=== PATIENT | female | born 1955 | race Caucasian/White ===

== ENCOUNTER 2020-01-17 18:07 | Inpatient (IN) ==
[2020-01-17 19:20] LABS: Basophils % 0.4 %; Hematocrit 50.6 % (35.3-44.9); Hemoglobin 13.4 g/dL (11.5-15.4); Immature Granulocytes % 1.8 % (0-4); Immature Platelets 9.2 % (1.1-6.1); Lymphocytes # 0.8 K/mcL (0.6-4.6); Lymphocytes % 11.4 %; Mean Corpuscular HGB Conc 26.5 g/dL (31.6-35.5); Mean Corpuscular Hemoglobin 23.7 pg (28.0-33.3); Mean Corpuscular Volume 89.6 fL (83.0-100.0); Monocytes # 0.5 K/mcL (0.0-1.3); Monocytes % 7.3 %; Neutrophils # 5.3 K/mcL (1.6-8.9); Nucleated Red Blood Cells 0.9 /100 WBC (0); Platelet Count 103 K/mcL (140-400); Red Blood Count 5.65 M/mcL (3.82-4.97); Red Cell Distribution Width 18.8 % (11.5-14.5); Segmented Neutrophils % 79.1 %; White Blood Count 6.7 K/mcL (4.3-11.1)
[2020-01-17 19:38] LABS: Alanine Aminotransferase 12 Units/L (7-52); Albumin 3.8 g/dL (3.5-5.7); Albumin/Globulin Ratio 1.1 (1.1-2.2); Alkaline Phosphatase 115 Units/L (34-104); Aspartate Amino Transferase 18 Units/L (13-39); BUN/Creatinine Ratio 18 (6-26); Bilirubin,Direct 0.3 mg/dL (0.0-0.2); Bilirubin,Indirect 0.4 mg/dL (0.0-1.0); Bilirubin,Total 0.7 mg/dL (0.3-1.0); Blood Urea Nitrogen 35 mg/dL (8-23); Calcium 8.8 mg/dL (8.6-10.3); Carbon Dioxide 29 mEq/L (23-29); Chloride 102 mEq/L (98-107); Ethanol < 10 mg/dL (Less than 10); Globulin 3.4 g/dL (2.4-3.5); Glucose 117 mg/dL (70-105); Osmolality,Calculated 299 (280-300); Potassium 5.5 mEq/L (3.5-5.1); Prothrombin Time 11.8 Seconds (9.4-12.1); Sodium 140 mEq/L (136-145); Total Protein 7.2 g/dL (6.4-8.9); eGFR For African Americans 31 (> 60); eGFR For Non-African Americans 25 (> 60)
[2020-01-17 19:41] LABS: Activated Partial Thrombo Time 30.7 Seconds (26.0-36.0)
[2020-01-17 19:49] LABS: Troponin I 0.04 ng/mL (< 0.04)
[2020-01-17 20:12] LABS: Platelet Estimate Decreased (Normal)
[2020-01-17 20:13] LABS: Bacteria,Urine Few per hpf (None-Few); Bilirubin,Urine Small (Negative); Blood,Urine Negative (Negative); Clarity,Urine Turbid (Clear); Color,Urine Yellow (Yellow); Glucose,Urine (UA) Normal (Normal); Hyaline Casts,Urine Many per lpf (None Seen); Ketones,Urine Trace mg/dL (Negative); Leukocyte Esterase,Urine Negative (Negative); Mucus,Urine Few per lpf (None-Few); Nitrite,Urine Negative (Negative); Protein,Urine 50 mg/dL (Neg-Trace); Specific Gravity,Urine 1.029 (1.010-1.025); Squamous Epithelial Cell,Urine Few per hpf (None-Few); Transitional Epi Cells,Urine Few per hpf (None-Few)
[2020-01-17 20:33] LABS: Amphetamine Screen,Urine Negative ng/mL (Cutoff=1000); Barbiturate Screen,Urine Negative ng/mL (Cutoff=200); Benzodiazepines Screen,Urine Negative ng/mL (Cutoff=200); Cannabinoid Screen,Urine Negative ng/mL (Cutoff = 50); Cocaine Screen,Urine Negative ng/mL (Cutoff= 300); Opiate Screen,Urine Positive ng/mL (Cutoff=300); Phencyclidine Screen,Urine Negative ng/mL (Cutoff=25)
[2020-01-17] MEDS ORDERED: *HR* LORazepam 2 MG/ML VIAL IVP ONE (21:42)
[2020-01-17 21:48] LABS: ABG Base Excess 1 mEq/L (-2 to 3); ABG HCO3 32 mEq/L (21-27); ABG Oxygen Saturation 91 % (95-98); ABG PCO2 80 mmHg (35-45); ABG PH 7.21 pH Units (7.32-7.45); ABG PO2 76 mmHg (85-104); ABG TCO2 35 mEq/L (20-26)
[2020-01-17 22:02] LABS: Adenovirus Not Detected (Not Detect); Bordetella Pertussis Not Detected (Not Detect); Chlamydophila pneumoniae Not Detected (Not Detect); Coronavirus 229E Not Detected (Not Detect); Coronavirus HKU1 Not Detected (Not Detect); Coronavirus NL63 Not Detected (Not Detect); Coronavirus OC43 Not Detected (Not Detect); Human Metapneumovirus Not Detected (Not Detect); Human Rhinovirus/Enterovirus Not Detected (Not Detect); Influenza A Subtype 2009 H1 Not Detected (Not Detect); Influenza B Not Detected (Not Detect); Mycoplasma pneumoniae Not Detected (Not Detect); Parainfluenza Virus 1 Not Detected (Not Detect); Parainfluenza Virus 2 Not Detected (Not Detect); Parainfluenza Virus 3 Not Detected (Not Detect); Parainfluenza Virus 4 Not Detected (Not Detect); Respiratory Syncytial Virus Not Detected (Not Detect)
[2020-01-17] MEDS ORDERED: *HR* Heparin 5,000 UNIT/ML VIAL IVP ONE (22:07)
[2020-01-17] MEDS ORDERED: *HR* Heparin 5,000 UNIT/ML VIAL IVP PRN ×2 (22:07)
[2020-01-17] MEDS ORDERED: Heparin 25,000UNIT/250ML 1/2NS 25,000 UNIT/250 ML IV.SOLN IVC SCH (22:15)
[2020-01-17 23:13] LABS: ABG Base Excess 2 mEq/L (-2 to 3); ABG HCO3 32 mEq/L (21-27); ABG Oxygen Saturation 68 % (95-98); ABG PCO2 76 mmHg (35-45); ABG PH 7.23 pH Units (7.32-7.45); ABG PO2 43 mmHg (85-104); ABG TCO2 35 mEq/L (20-26); Blood Gas Modality avaps; Blood Gas VT 550 cc
[2020-01-17 23:24] LABS: ABG Base Excess 3 mEq/L (-2 to 3); ABG HCO3 34 mEq/L (21-27); ABG Oxygen Saturation 96 % (95-98); ABG PCO2 80 mmHg (35-45); ABG PH 7.24 pH Units (7.32-7.45); ABG PO2 104 mmHg (85-104); ABG TCO2 36 mEq/L (20-26); Blood Gas Modality avaps; Blood Gas VT 550 cc
[2020-01-18 01:34] LABS: Potassium,Urine 58.7 mEq/L; Protein/Creatinine Ratio,Urine 0.33 mg/mg (0.00-0.20); Sodium, Urine 53.7 mEq/L
[2020-01-18] MEDS ORDERED: Naloxone 0.4 MG/ML INJ IVP PRN (01:36)
[2020-01-18 02:23] LABS: ABG Base Excess 2 mEq/L (-2 to 3); ABG HCO3 32 mEq/L (21-27); ABG Oxygen Saturation 92 % (95-98); ABG PCO2 72 mmHg (35-45); ABG PH 7.26 pH Units (7.32-7.45); ABG PO2 76 mmHg (85-104); ABG TCO2 34 mEq/L (20-26); Blood Gas VT 550 cc
[2020-01-18 03:27] LABS: Mean Corpuscular HGB Conc 27.5 g/dL (31.6-35.5)
[2020-01-18 03:28] LABS: Hematocrit 45.5 % (35.3-44.9); Hemoglobin 12.5 g/dL (11.5-15.4); Immature Platelets 8.7 % (1.1-6.1); Mean Corpuscular Hemoglobin 24.2 pg (28.0-33.3); Platelet Count 101 K/mcL (140-400); Red Blood Count 5.17 M/mcL (3.82-4.97); Red Cell Distribution Width 18.2 % (11.5-14.5); White Blood Count 8.4 K/mcL (4.3-11.1)
[2020-01-18 03:36] LABS: INR 1.2; Prothrombin Time 13.1 Seconds (9.4-12.1)
[2020-01-18 04:23] LABS: Calcium 8.3 mg/dL (8.6-10.3); Phosphorous 4.7 mg/dL (2.7-4.5); Potassium 5.8 mEq/L (3.5-5.1)
[2020-01-18 04:36] LABS: Troponin I 0.04 ng/mL (< 0.04)
[2020-01-18] MEDS ORDERED: Calcium Gluconate 1gm/50mL 1 GM/50 ML BAG IVPB ONE (04:36)
[2020-01-18] MEDS ORDERED: *HR* Dextrose 50 % in Water (Vial) 50 ML VIAL IVP ONE (04:38)
[2020-01-18] MEDS ORDERED: Perflutren Lipid Microsphere 1.3 ML in 0.9 % Sodium Chloride 8.7 ML IVP PRN (04:38)
[2020-01-18] MEDS ORDERED: Insulin Regular, Human 100 UNIT/ML IV ONE (04:38)
[2020-01-18 05:13] LABS: Basophils % 0.4 %; Eosinophils % 0.3 %; Immature Granulocytes % 0.8 % (0-4)
[2020-01-18] MEDS ORDERED: Furosemide 40 MG/4 ML VIAL IVP ONE (05:13)
[2020-01-18 05:14] LABS: Hematocrit 44.3 % (35.3-44.9); Hemoglobin 11.8 g/dL (11.5-15.4); Immature Platelets 9.9 % (1.1-6.1); Lymphocytes # 1.1 K/mcL (0.6-4.6); Lymphocytes % 14.5 %; Mean Corpuscular HGB Conc 26.6 g/dL (31.6-35.5); Mean Corpuscular Hemoglobin 23.2 pg (28.0-33.3); Mean Corpuscular Volume 87.2 fL (83.0-100.0); Mean Platelet Volume 11.1 fL (9.4-12.4); Monocytes # 0.8 K/mcL (0.0-1.3); Monocytes % 10.7 %; Neutrophils # 5.4 K/mcL (1.6-8.9); Nucleated Red Blood Cells 0.8 /100 WBC (0); Platelet Count 103 K/mcL (140-400); Red Blood Count 5.08 M/mcL (3.82-4.97); Red Cell Distribution Width 18.2 % (11.5-14.5); Segmented Neutrophils % 73.3 %; White Blood Count 7.4 K/mcL (4.3-11.1)
[2020-01-18] MEDS: Famotidine 20 MG/2 ML VIAL IVP SCH ×2 (05:36→17:15)
[2020-01-18] MEDS ORDERED: Insulin Human Regular 5 UNIT in 0.9 % Sodium Chloride 10 ML IV ONE (05:45)
[2020-01-18 06:51] LABS: Platelet Estimate Normal (Normal)
[2020-01-18 10:30] LABS: Calcium 8.5 mg/dL (8.6-10.3); Troponin I 0.03 ng/mL (< 0.04)
[2020-01-18 12:23] LABS: ABG Base Excess 4 mEq/L (-2 to 3); ABG HCO3 34 mEq/L (21-27); ABG Oxygen Saturation 96 % (95-98); ABG PCO2 76 mmHg (35-45); ABG PH 7.26 pH Units (7.32-7.45); ABG PO2 95 mmHg (85-104); ABG TCO2 36 mEq/L (20-26); Blood Gas Modality ST; Blood Gas VT 550 cc
[2020-01-18] MEDS: *HR* Heparin 5,000 UNIT/ML VIAL SQ SCH (21:29)
[2020-01-19] MEDS ORDERED: *HR* LORazepam 2 MG/ML VIAL IVP PRN (01:02)
[2020-01-19 04:37] LABS: Basophils % 0.3 %
[2020-01-19 04:39] LABS: ABG Base Excess 7 mEq/L (-2 to 3); ABG HCO3 36 mEq/L (21-27); ABG Oxygen Saturation 97 % (95-98); ABG PCO2 69 mmHg (35-45); ABG PH 7.32 pH Units (7.32-7.45); ABG PO2 97 mmHg (85-104); ABG TCO2 38 mEq/L (20-26); Blood Gas Modality AVAPS; Blood Gas VT 550 cc
[2020-01-19 04:39] LABS: Eosinophils # 0.1 K/mcL (0.0-0.6); Eosinophils % 1.3 %; Hematocrit 39.7 % (35.3-44.9); Hemoglobin 10.9 g/dL (11.5-15.4); Immature Granulocytes % 0.3 % (0-4); Immature Platelets 8.1 % (1.1-6.1); Lymphocytes # 0.6 K/mcL (0.6-4.6); Lymphocytes % 10.1 %; Mean Corpuscular HGB Conc 27.5 g/dL (31.6-35.5); Mean Corpuscular Hemoglobin 23.6 pg (28.0-33.3); Mean Corpuscular Volume 85.9 fL (83.0-100.0); Monocytes # 0.6 K/mcL (0.0-1.3); Nucleated Red Blood Cells 0.3 /100 WBC (0); Red Blood Count 4.62 M/mcL (3.82-4.97); Red Cell Distribution Width 18.2 % (11.5-14.5); White Blood Count 6.3 K/mcL (4.3-11.1)
[2020-01-19 05:02] LABS: BUN/Creatinine Ratio 29 (6-26); Blood Urea Nitrogen 26 mg/dL (8-23); Calcium 8.5 mg/dL (8.6-10.3); Carbon Dioxide 33 mEq/L (23-29); Chloride 103 mEq/L (98-107); Glucose 80 mg/dL (70-105); Osmolality,Calculated 296 (280-300); Phosphorous 2.1 mg/dL (2.7-4.5); Potassium 4.5 mEq/L (3.5-5.1); Sodium 141 mEq/L (136-145); eGFR For African Americans > 60 (> 60); eGFR For Non-African Americans > 60 (> 60)
[2020-01-19 05:28] LABS: Platelet Count 94 K/mcL (140-400)
[2020-01-19 05:29] LABS: Anisocytosis 1+ (Not Present); Hypochromasia Present (Not Present)
[2020-01-19 05:30] LABS: Platelet Estimate Slight Decrease (Normal)
[2020-01-19] MEDS: Famotidine 20 MG/2 ML VIAL IVP SCH (06:14)
[2020-01-19] MEDS: *HR* Heparin 5,000 UNIT/ML VIAL SQ SCH ×3 (06:14→21:00)
[2020-01-19 06:29] LABS: Troponin I 0.03 ng/mL (< 0.04)
[2020-01-19] MEDS: allopurinoL 300 MG TABLET PO SCH (07:59)
[2020-01-19] MEDS: Loratadine 10 MG TABLET PO SCH (07:59)
[2020-01-19] MEDS ORDERED: Furosemide 40 MG TABLET PO SCH (09:00)
[2020-01-19] MEDS: *HR* OxyCODONE/APAP 10/325 TABLET PO PRN ×3 (11:32→23:36)
[2020-01-19] MEDS: Pregabalin 75 MG CAPSULE PO SCH ×2 (16:23→19:48)
[2020-01-19] MEDS ORDERED: Furosemide 40 MG/4 ML VIAL IVP ONE (22:46)
[2020-01-20 05:16] LABS: Hematocrit 42.4 % (35.3-44.9); Mean Corpuscular Volume 84.3 fL (83.0-100.0); Red Blood Count 5.03 M/mcL (3.82-4.97)
[2020-01-20 05:18] LABS: Basophils % 0.6 %; Eosinophils # 0.1 K/mcL (0.0-0.6); Eosinophils % 2.7 %; Immature Granulocytes % 0.4 % (0-4); Immature Platelets 7.3 % (1.1-6.1); Lymphocytes # 0.8 K/mcL (0.6-4.6); Lymphocytes % 15.4 %; Mean Corpuscular HGB Conc 28.3 g/dL (31.6-35.5); Mean Corpuscular Hemoglobin 23.9 pg (28.0-33.3); Mean Platelet Volume 11.9 fL (9.4-12.4); Monocytes # 0.6 K/mcL (0.0-1.3); Monocytes % 11.9 %; Neutrophils # 3.5 K/mcL (1.6-8.9); Red Cell Distribution Width 18.1 % (11.5-14.5); White Blood Count 5.1 K/mcL (4.3-11.1)
[2020-01-20 05:22] LABS: Platelet Count 96 K/mcL (140-400)
[2020-01-20 05:36] LABS: BUN/Creatinine Ratio 22 (6-26); Blood Urea Nitrogen 17 mg/dL (8-23); Calcium 8.5 mg/dL (8.6-10.3); Carbon Dioxide 42 mEq/L (23-29); Chloride 96 mEq/L (98-107); Glucose 100 mg/dL (70-105); Osmolality,Calculated 294 (280-300); Potassium 3.9 mEq/L (3.5-5.1); Sodium 141 mEq/L (136-145); eGFR For African Americans > 60 (> 60); eGFR For Non-African Americans > 60 (> 60)
[2020-01-20] MEDS: *HR* OxyCODONE/APAP 10/325 TABLET PO PRN ×4 (05:41→23:36)
[2020-01-20] MEDS: *HR* Heparin 5,000 UNIT/ML VIAL SQ SCH ×3 (05:42→21:44)
[2020-01-20 08:14] LABS: Phosphorous 3.2 mg/dL (2.7-4.5)
[2020-01-20 08:21] LABS: ABG Base Excess 16 mEq/L (-2 to 3); ABG HCO3 47 mEq/L (21-27); ABG Oxygen Saturation 96 % (95-98); ABG PCO2 89 mmHg (35-45); ABG PH 7.33 pH Units (7.32-7.45); ABG PO2 93 mmHg (85-104); ABG TCO2 50 mEq/L (20-26)
[2020-01-20] MEDS: Pregabalin 75 MG CAPSULE PO SCH ×3 (08:49→20:24)
[2020-01-20] MEDS: Loratadine 10 MG TABLET PO SCH (08:49)
[2020-01-20] MEDS: allopurinoL 300 MG TABLET PO SCH (08:50)
[2020-01-20] MEDS ORDERED: hydroCHLOROthiazide 25 MG TABLET PO SCH (09:00)
[2020-01-20] MEDS ORDERED: Multivit/Ca/Min/Fe/FA 1 TAB TABLET PO SCH (09:00)
[2020-01-20] MEDS ORDERED: amLODIPine 5 MG TABLET PO SCH (11:15)
[2020-01-20] MEDS ORDERED: Naloxone 0.4 MG/ML INJ IVP PRN (16:36)
[2020-01-21] MEDS ORDERED: *HR* LORazepam 1 MG TABLET PO ONE (01:06)
[2020-01-21 05:18] LABS: Basophils % 0.3 %; Eosinophils % 3.4 %; Mean Corpuscular HGB Conc 28.1 g/dL (31.6-35.5)
[2020-01-21 05:20] LABS: Eosinophils # 0.2 K/mcL (0.0-0.6); Hematocrit 42.4 % (35.3-44.9); Hemoglobin 11.9 g/dL (11.5-15.4); Immature Granulocytes % 0.3 % (0-4); Immature Platelets 8.4 % (1.1-6.1); Lymphocytes # 0.8 K/mcL (0.6-4.6); Lymphocytes % 12.9 %; Mean Corpuscular Hemoglobin 23.6 pg (28.0-33.3); Mean Corpuscular Volume 84.1 fL (83.0-100.0); Monocytes # 0.8 K/mcL (0.0-1.3); Monocytes % 12.9 %; Neutrophils # 4.5 K/mcL (1.6-8.9); Platelet Count 94 K/mcL (140-400); Red Blood Count 5.04 M/mcL (3.82-4.97); Red Cell Distribution Width 18.5 % (11.5-14.5); Segmented Neutrophils % 70.2 %; White Blood Count 6.4 K/mcL (4.3-11.1)
[2020-01-21 05:36] LABS: BUN/Creatinine Ratio 22 (6-26); Blood Urea Nitrogen 14 mg/dL (8-23); Calcium 8.7 mg/dL (8.6-10.3); Carbon Dioxide 40 mEq/L (23-29); Chloride 95 mEq/L (98-107); Glucose 107 mg/dL (70-105); Magnesium 1.4 mg/dL (1.6-2.6); Osmolality,Calculated 289 (280-300); Phosphorous 2.8 mg/dL (2.7-4.5); Potassium 3.6 mEq/L (3.5-5.1); Sodium 139 mEq/L (136-145); eGFR For African Americans > 60 (> 60); eGFR For Non-African Americans > 60 (> 60)
[2020-01-21 05:41] LABS: Hypochromasia Present (Not Present); Platelet Estimate Decreased (Normal); Reactive Lymphocytes Present (Not Present)
[2020-01-21 05:42] LABS: Anisocytosis 1+ (Not Present)
[2020-01-21] MEDS: *HR* Heparin 5,000 UNIT/ML VIAL SQ SCH ×3 (06:09→20:17)
[2020-01-21] MEDS: *HR* OxyCODONE/APAP 10/325 TABLET PO PRN ×3 (06:10→20:16)
[2020-01-21] MEDS: allopurinoL 300 MG TABLET PO SCH (08:04)
[2020-01-21] MEDS: Pregabalin 75 MG CAPSULE PO SCH ×3 (08:04→20:17)
[2020-01-21] MEDS: Multivit/Ca/Min/Fe/FA 1 TAB TABLET PO SCH (08:04)
[2020-01-21] MEDS: lisinopriL 20 MG TABLET PO SCH (08:04)
[2020-01-21] MEDS: amLODIPine 5 MG TABLET PO SCH (08:05)
[2020-01-21] MEDS: Loratadine 10 MG TABLET PO SCH (08:05)
[2020-01-21] MEDS: hydroCHLOROthiazide 25 MG TABLET PO SCH (08:05)
[2020-01-21] MEDS: Furosemide 40 MG TABLET PO SCH (08:07)
[2020-01-21] MEDS ORDERED: lisinopriL 20 MG TABLET PO SCH (09:00)
[2020-01-22] MEDS: *HR* OxyCODONE/APAP 10/325 TABLET PO PRN ×3 (04:33→22:49)
[2020-01-22] MEDS: *HR* Heparin 5,000 UNIT/ML VIAL SQ SCH ×3 (04:34→20:44)
[2020-01-22 06:18] LABS: Basophils % 0.3 %; Monocytes % 12.5 %
[2020-01-22 06:20] LABS: Eosinophils # 0.2 K/mcL (0.0-0.6); Eosinophils % 2.6 %; Hematocrit 42.2 % (35.3-44.9); Immature Granulocytes % 0.3 % (0-4); Immature Platelets 8.4 % (1.1-6.1); Lymphocytes # 0.8 K/mcL (0.6-4.6); Lymphocytes % 10.4 %; Mean Corpuscular HGB Conc 28.4 g/dL (31.6-35.5); Mean Corpuscular Hemoglobin 24.2 pg (28.0-33.3); Mean Corpuscular Volume 85.1 fL (83.0-100.0); Neutrophils # 5.7 K/mcL (1.6-8.9); Red Blood Count 4.96 M/mcL (3.82-4.97); Red Cell Distribution Width 18.8 % (11.5-14.5); Segmented Neutrophils % 73.9 %; White Blood Count 7.7 K/mcL (4.3-11.1)
[2020-01-22 06:33] LABS: Platelet Count 98 K/mcL (140-400)
[2020-01-22 06:38] LABS: BUN/Creatinine Ratio 19 (6-26); Blood Urea Nitrogen 15 mg/dL (8-23); Calcium 8.9 mg/dL (8.6-10.3); Carbon Dioxide 38 mEq/L (23-29); Chloride 94 mEq/L (98-107); Glucose 119 mg/dL (70-105); Osmolality,Calculated 286 (280-300); Potassium 3.8 mEq/L (3.5-5.1); Sodium 137 mEq/L (136-145); eGFR For African Americans > 60 (> 60); eGFR For Non-African Americans > 60 (> 60)
[2020-01-22] MEDS: Multivit/Ca/Min/Fe/FA 1 TAB TABLET PO SCH (08:04)
[2020-01-22] MEDS: amLODIPine 5 MG TABLET PO SCH (08:05)
[2020-01-22] MEDS: Loratadine 10 MG TABLET PO SCH (08:05)
[2020-01-22] MEDS: hydroCHLOROthiazide 25 MG TABLET PO SCH (08:05)
[2020-01-22] MEDS: Furosemide 40 MG TABLET PO SCH (08:05)
[2020-01-22] MEDS: Pregabalin 75 MG CAPSULE PO SCH ×3 (08:05→20:44)
[2020-01-22] MEDS: allopurinoL 300 MG TABLET PO SCH (08:05)
[2020-01-22] MEDS: lisinopriL 20 MG TABLET PO SCH (08:06)
[2020-01-23] MEDS: *HR* Heparin 5,000 UNIT/ML VIAL SQ SCH ×3 (06:02→20:58)
[2020-01-23] MEDS: lisinopriL 20 MG TABLET PO SCH (07:58)
[2020-01-23] MEDS: hydroCHLOROthiazide 25 MG TABLET PO SCH (07:58)
[2020-01-23] MEDS: Furosemide 40 MG TABLET PO SCH (07:58)
[2020-01-23] MEDS: Pregabalin 75 MG CAPSULE PO SCH ×3 (07:59→20:57)
[2020-01-23] MEDS: Multivit/Ca/Min/Fe/FA 1 TAB TABLET PO SCH (07:59)
[2020-01-23] MEDS: Spironolactone 25 MG TABLET PO SCH (07:59)
[2020-01-23] MEDS: *HR* OxyCODONE/APAP 10/325 TABLET PO PRN ×3 (07:59→20:57)
[2020-01-23] MEDS: Propranolol LA (24 HR) 60 MG CAP.SA.24H PO SCH (07:59)
[2020-01-23] MEDS: amLODIPine 5 MG TABLET PO SCH (07:59)
[2020-01-23] MEDS: allopurinoL 300 MG TABLET PO SCH (07:59)
[2020-01-23] MEDS: Loratadine 10 MG TABLET PO SCH (07:59)
[2020-01-23] MEDS: predniSONE 20 MG TABLET PO SCH (11:30)
[2020-01-24] MEDS: *HR* OxyCODONE/APAP 10/325 TABLET PO PRN ×3 (03:32→16:21)
[2020-01-24 03:42] LABS: BUN/Creatinine Ratio 33 (6-26); Blood Urea Nitrogen 27 mg/dL (8-23); Carbon Dioxide 39 mEq/L (23-29); Chloride 88 mEq/L (98-107); Glucose 106 mg/dL (70-105); Osmolality,Calculated 278 (280-300); Potassium 3.8 mEq/L (3.5-5.1); Sodium 131 mEq/L (136-145); eGFR For African Americans > 60 (> 60); eGFR For Non-African Americans > 60 (> 60)
[2020-01-24] MEDS: *HR* Heparin 5,000 UNIT/ML VIAL SQ SCH ×2 (05:38→13:32)
[2020-01-24 08:27] LABS: Basophils % 0.3 %
[2020-01-24 08:28] LABS: Eosinophils # 0.1 K/mcL (0.0-0.6); Eosinophils % 1.3 %; Hematocrit 42.7 % (35.3-44.9); Hemoglobin 12.3 g/dL (11.5-15.4); Immature Granulocytes % 0.3 % (0-4); Immature Platelets 13.3 % (1.1-6.1); Lymphocytes # 1.1 K/mcL (0.6-4.6); Lymphocytes % 12.8 %; Mean Corpuscular HGB Conc 28.8 g/dL (31.6-35.5); Mean Corpuscular Hemoglobin 24.4 pg (28.0-33.3); Mean Corpuscular Volume 84.7 fL (83.0-100.0); Monocytes # 0.9 K/mcL (0.0-1.3); Neutrophils # 6.6 K/mcL (1.6-8.9); Platelet Count 117 K/mcL (140-400); Red Blood Count 5.04 M/mcL (3.82-4.97); Red Cell Distribution Width 19.1 % (11.5-14.5); Segmented Neutrophils % 75.3 %; White Blood Count 8.7 K/mcL (4.3-11.1)
[2020-01-24] MEDS: Multivit/Ca/Min/Fe/FA 1 TAB TABLET PO SCH (08:43)
[2020-01-24] MEDS: Pregabalin 75 MG CAPSULE PO SCH ×2 (08:43→13:32)
[2020-01-24] MEDS: Propranolol LA (24 HR) 60 MG CAP.SA.24H PO SCH (08:43)
[2020-01-24] MEDS: predniSONE 20 MG TABLET PO SCH (08:43)
[2020-01-24] MEDS: Loratadine 10 MG TABLET PO SCH (08:43)
[2020-01-24] MEDS: allopurinoL 300 MG TABLET PO SCH (08:43)
[2020-01-24] MEDS: amLODIPine 5 MG TABLET PO SCH (08:43)
[2020-01-24] MEDS: Spironolactone 25 MG TABLET PO SCH (08:44)
[2020-01-24] MEDS: lisinopriL 20 MG TABLET PO SCH (08:44)
[2020-01-24 08:56] LABS: Hypochromasia Present (Not Present); Platelet Estimate Decreased (Normal)
[2020-01-24 11:21] LABS: Amorphous Sediment,Urine Few per hpf (None-Few); Bacteria,Urine Few per hpf (None-Few); Bilirubin,Urine Negative (Negative); Blood,Urine Trace (Negative); Clarity,Urine Turbid (Clear); Color,Urine Yellow (Yellow); Glucose,Urine (UA) Normal (Normal); Ketones,Urine Negative (Negative); Leukocyte Esterase,Urine Large (Negative); Mucus,Urine Few per lpf (None-Few); Nitrite,Urine Negative (Negative); PH,Urine 6.5 pH Units (5.0-8.0); Protein,Urine Negative (Neg-Trace); Squamous Epithelial Cell,Urine Moderate per hpf (None-Few); Transitional Epi Cells,Urine Few per hpf (None-Few); WBC,Urine TNTC per hpf (0-3)
[2020-01-24] MEDS ORDERED: cefTRIAXone 2,000 MG in Water for inj. (sterile) 20 ML IVP ONE (12:06)
[2020-01-24 15:03] VITALS: BP 106/65
== END 2020-01-24 18:00 | disposition home health service (06) | DRG 291 ==
LOC: EMEROOARM 18:07 → ICNU 18:07 → SUATTDRO 01-18 01:37 → 2ANU 01-21 17:58
PROVIDERS: ADMIT Student in an Organized Health Care Education/Training Program; ATTEND Internal Medicine

== ENCOUNTER 2020-06-23 18:46 | Inpatient (IN) ==
[2020-06-23] MEDS ORDERED: Vancomycin 2,000 MG/520 ML IV.SOLN IVPB ONE (19:49)
[2020-06-23] MEDS ORDERED: Piperacillin/Tazobactam 3.375 GM in 0.9 % Sodium Chloride Mini Bag 100 ML IVPB ONE (19:49)
[2020-06-23 22:00] LABS: Hemoglobin 11.8 g/dL (11.5-15.4); Immature Granulocytes % 0.1 % (0-4)
[2020-06-23 22:02] LABS: Basophils # 0.1 K/mcL (0.0-0.2); Basophils % 0.9 %; Eosinophils # 0.3 K/mcL (0.0-0.6); Eosinophils % 3.3 %; Hematocrit 43.5 % (35.3-44.9); Immature Platelets 10.7 % (1.1-6.1); Mean Corpuscular HGB Conc 27.1 g/dL (31.6-35.5); Mean Corpuscular Hemoglobin 22.8 pg (28.0-33.3); Monocytes # 0.8 K/mcL (0.0-1.3); Monocytes % 9.7 %; Neutrophils # 6.1 K/mcL (1.6-8.9); Platelet Count 121 K/mcL (140-400); Red Blood Count 5.18 M/mcL (3.82-4.97); Red Cell Distribution Width 19.1 % (11.5-14.5); White Blood Count 8.2 K/mcL (4.3-11.1)
[2020-06-23 22:07] LABS: INR 1.1; Prothrombin Time 13.2 Seconds (9.4-12.1)
[2020-06-23 22:10] LABS: Activated Partial Thrombo Time 28.6 Seconds (26.0-36.0)
[2020-06-23 22:22] LABS: Hypochromasia Present (Not Present); Large Platelets Present (Not Present); Platelet Estimate Slight Decrease (Normal); Stomatocytes 2+ (Not Present)
[2020-06-23 22:30] LABS: BUN/Creatinine Ratio 22 (6-26); Blood Urea Nitrogen 21 mg/dL (8-23); Calcium 8.5 mg/dL (8.6-10.3); Carbon Dioxide 31 mEq/L (23-29); Chloride 101 mEq/L (98-107); Glucose 86 mg/dL (70-105); Lipase 18 Units/L (11-82); Osmolality,Calculated 286 (280-300); Sodium 137 mEq/L (136-145); Troponin I < 0.03 ng/mL (< 0.04); eGFR For African Americans > 60 (> 60); eGFR For Non-African Americans 58 (> 60)
[2020-06-23 22:51] LABS: Adenovirus Not Detected (Not Detect); Bordetella Pertussis Not Detected (Not Detect); Chlamydophila pneumoniae Not Detected (Not Detect); Coronavirus 229E Not Detected (Not Detect); Coronavirus HKU1 Not Detected (Not Detect); Coronavirus NL63 Not Detected (Not Detect); Coronavirus OC43 Not Detected (Not Detect); Human Metapneumovirus Not Detected (Not Detect); Human Rhinovirus/Enterovirus Not Detected (Not Detect); Influenza A Subtype 2009 H1 Not Detected (Not Detect); Influenza B Not Detected (Not Detect); Mycoplasma pneumoniae Not Detected (Not Detect); Parainfluenza Virus 1 Not Detected (Not Detect); Parainfluenza Virus 2 Not Detected (Not Detect); Parainfluenza Virus 3 Not Detected (Not Detect); Parainfluenza Virus 4 Not Detected (Not Detect); Respiratory Syncytial Virus Not Detected (Not Detect); SARS-CoV-2 Not Detected (Not Detect)
[2020-06-23] MEDS ORDERED: Furosemide 40 MG/4 ML VIAL IVP ONE (23:18)
[2020-06-23] MEDS ORDERED: Ondansetron 4 MG/2 ML VIAL IVP PRN (23:56)
[2020-06-23] MEDS ORDERED: Naloxone 0.4 MG/ML INJ IVP PRN (23:56)
[2020-06-23] MEDS ORDERED: Acetaminophen 325 MG TABLET PO PRN (23:56)
[2020-06-24 00:47] LABS: Basophils % 0.8 %; Mean Corpuscular Volume 83.7 fL (83.0-100.0)
[2020-06-24 00:49] LABS: Basophils # 0.1 K/mcL (0.0-0.2); Eosinophils # 0.3 K/mcL (0.0-0.6); Eosinophils % 3.6 %; Hematocrit 45.6 % (35.3-44.9); Hemoglobin 12.6 g/dL (11.5-15.4); Immature Granulocytes % 0.2 % (0-4); Lymphocytes # 1.1 K/mcL (0.6-4.6); Lymphocytes % 12.7 %; Mean Corpuscular HGB Conc 27.6 g/dL (31.6-35.5); Mean Corpuscular Hemoglobin 23.1 pg (28.0-33.3); Monocytes # 0.9 K/mcL (0.0-1.3); Monocytes % 10.1 %; Red Blood Count 5.45 M/mcL (3.82-4.97); Red Cell Distribution Width 19.7 % (11.5-14.5); Segmented Neutrophils % 72.6 %
[2020-06-24 00:50] LABS: INR 1.1; Prothrombin Time 12.9 Seconds (9.4-12.1)
[2020-06-24 00:53] LABS: Activated Partial Thrombo Time 28.5 Seconds (26.0-36.0)
[2020-06-24 01:07] LABS: Neutrophils # 6.5 K/mcL (1.6-8.9)
[2020-06-24 01:08] LABS: Alanine Aminotransferase 9 Units/L (7-52); Albumin 3.6 g/dL (3.5-5.7); Albumin/Globulin Ratio 1.1 (1.1-2.2); Alkaline Phosphatase 91 Units/L (34-104); Anisocytosis 1+ (Not Present); Aspartate Amino Transferase 11 Units/L (13-39); BUN/Creatinine Ratio 21 (6-26); Bilirubin,Total 0.5 mg/dL (0.3-1.0); Blood Urea Nitrogen 20 mg/dL (8-23); C-Reactive Protein 22 mg/L (Less than 10); Carbon Dioxide 32 mEq/L (23-29); Chloride 100 mEq/L (98-107); Chol/HDL Ratio 3.4 (0-4.9); Cholesterol 117 mg/dL (< 200); Globulin 3.2 g/dL (2.4-3.5); Glucose 113 mg/dL (70-105); HDL Cholesterol 34 mg/dL (40-59); LDL Cholesterol,Calculated 64 mg/dL (< 100); Magnesium 1.9 mg/dL (1.6-2.6); Osmolality,Calculated 289 (280-300); Platelet Clumps Few (Not Present); Poikilocytosis 1+ (Not Present); Polychromasia 1+ (Not Present); Potassium 5.1 mEq/L (3.5-5.1); Sodium 138 mEq/L (136-145); Stomatocytes 1+ (Not Present); Total Protein 6.8 g/dL (6.4-8.9); Triglycerides 93 mg/dL (< 150); eGFR For African Americans > 60 (> 60); eGFR For Non-African Americans 59 (> 60)
[2020-06-24] MEDS: *HR* OxyCODONE/APAP 10/325 TABLET PO PRN ×3 (04:15→21:06)
[2020-06-24] MEDS: Pregabalin 75 MG CAPSULE PO SCH ×3 (08:58→21:05)
[2020-06-24] MEDS: allopurinoL 300 MG TABLET PO SCH (08:58)
[2020-06-24] MEDS: Furosemide 40 MG/4 ML VIAL IVP SCH ×2 (08:58→17:15)
[2020-06-24] MEDS: Loratadine 10 MG TABLET PO SCH (08:58)
[2020-06-24] MEDS: cefTRIAXone 1,000 MG in Water for inj. (sterile) 10 ML IVP SCH (08:58)
[2020-06-24] MEDS: amLODIPine 5 MG TABLET PO SCH (08:58)
[2020-06-24] MEDS: Spironolactone 25 MG TABLET PO SCH (08:58)
[2020-06-24] MEDS: Propranolol LA (24 HR) 60 MG CAP.SA.24H PO SCH (09:47)
[2020-06-24] MEDS: *HR* Heparin 5,000 UNIT/ML VIAL SQ SCH ×2 (12:13→17:16)
[2020-06-25] MEDS: *HR* Heparin 5,000 UNIT/ML VIAL SQ SCH ×2 (05:31→17:20)
[2020-06-25] MEDS: Furosemide 40 MG/4 ML VIAL IVP SCH (07:34)
[2020-06-25] MEDS: *HR* OxyCODONE/APAP 10/325 TABLET PO PRN (07:35)
[2020-06-25 09:01] LABS: Eosinophils % 4.6 %; Hemoglobin 11.8 g/dL (11.5-15.4)
[2020-06-25 09:02] LABS: Basophils # 0.1 K/mcL (0.0-0.2); Basophils % 0.9 %; Eosinophils # 0.3 K/mcL (0.0-0.6); Hematocrit 42.6 % (35.3-44.9); Immature Granulocytes % 0.3 % (0-4); Immature Platelets 12.1 % (1.1-6.1); Lymphocytes # 0.8 K/mcL (0.6-4.6); Lymphocytes % 11.5 %; Mean Corpuscular HGB Conc 27.7 g/dL (31.6-35.5); Mean Corpuscular Hemoglobin 23.1 pg (28.0-33.3); Mean Corpuscular Volume 83.5 fL (83.0-100.0); Monocytes # 0.9 K/mcL (0.0-1.3); Monocytes % 14.1 %; Neutrophils # 4.5 K/mcL (1.6-8.9); Segmented Neutrophils % 68.6 %; White Blood Count 6.5 K/mcL (4.3-11.1)
[2020-06-25 09:18] LABS: BUN/Creatinine Ratio 22 (6-26); Blood Urea Nitrogen 23 mg/dL (8-23); Calcium 8.5 mg/dL (8.6-10.3); Carbon Dioxide 36 mEq/L (23-29); Chloride 97 mEq/L (98-107); Glucose 99 mg/dL (70-105); Osmolality,Calculated 292 (280-300); Potassium 5.1 mEq/L (3.5-5.1); Sodium 139 mEq/L (136-145); eGFR For African Americans > 60 (> 60); eGFR For Non-African Americans 54 (> 60)
[2020-06-25] MEDS: cefTRIAXone 1,000 MG in Water for inj. (sterile) 10 ML IVP SCH (10:24)
[2020-06-25] MEDS: Loratadine 10 MG TABLET PO SCH (10:27)
[2020-06-25] MEDS: Propranolol LA (24 HR) 60 MG CAP.SA.24H PO SCH (10:27)
[2020-06-25] MEDS: Spironolactone 25 MG TABLET PO SCH (10:27)
[2020-06-25] MEDS: amLODIPine 5 MG TABLET PO SCH (10:27)
[2020-06-25] MEDS: Pregabalin 75 MG CAPSULE PO SCH ×3 (10:27→20:15)
[2020-06-25] MEDS: allopurinoL 300 MG TABLET PO SCH (10:27)
[2020-06-25 11:40] LABS: Stomatocytes 3+ (Not Present)
[2020-06-25 11:41] LABS: Hypochromasia Present (Not Present); Poikilocytosis 2+ (Not Present)
[2020-06-26 03:13] LABS: Basophils % 0.8 %; Eosinophils # 0.2 K/mcL (0.0-0.6); Eosinophils % 4.7 %; Hematocrit 42.7 % (35.3-44.9); Hemoglobin 11.7 g/dL (11.5-15.4); Immature Granulocytes % 0.2 % (0-4); Lymphocytes % 20.3 %; Mean Corpuscular HGB Conc 27.4 g/dL (31.6-35.5); Mean Corpuscular Hemoglobin 23.5 pg (28.0-33.3); Mean Corpuscular Volume 85.7 fL (83.0-100.0); Monocytes # 0.9 K/mcL (0.0-1.3); Monocytes % 17.8 %; Red Blood Count 4.98 M/mcL (3.82-4.97); Red Cell Distribution Width 18.7 % (11.5-14.5); Segmented Neutrophils % 56.2 %; White Blood Count 4.9 K/mcL (4.3-11.1)
[2020-06-26 03:14] LABS: Neutrophils # 2.8 K/mcL (1.6-8.9); Platelet Count 62 K/mcL (140-400)
[2020-06-26 03:34] LABS: BUN/Creatinine Ratio 25 (6-26); Blood Urea Nitrogen 21 mg/dL (8-23); Calcium 8.5 mg/dL (8.6-10.3); Carbon Dioxide 37 mEq/L (23-29); Chloride 95 mEq/L (98-107); Glucose 96 mg/dL (70-105); Osmolality,Calculated 287 (280-300); Potassium 5.1 mEq/L (3.5-5.1); Sodium 137 mEq/L (136-145); eGFR For African Americans > 60 (> 60); eGFR For Non-African Americans > 60 (> 60)
[2020-06-26] MEDS: *HR* Heparin 5,000 UNIT/ML VIAL SQ SCH (05:36)
[2020-06-26] MEDS: Spironolactone 25 MG TABLET PO SCH (08:55)
[2020-06-26] MEDS: Propranolol LA (24 HR) 60 MG CAP.SA.24H PO SCH (08:55)
[2020-06-26] MEDS: Pregabalin 75 MG CAPSULE PO SCH ×3 (08:55→21:50)
[2020-06-26] MEDS: allopurinoL 300 MG TABLET PO SCH (08:55)
[2020-06-26] MEDS: Loratadine 10 MG TABLET PO SCH (08:55)
[2020-06-26] MEDS: amLODIPine 5 MG TABLET PO SCH (08:56)
[2020-06-26] MEDS: cefTRIAXone 1,000 MG in Water for inj. (sterile) 10 ML IVP SCH (08:56)
[2020-06-26] MEDS ORDERED: Furosemide 40 MG/4 ML VIAL IVP SCH (09:00)
[2020-06-26] MEDS: *HR* OxyCODONE/APAP 10/325 TABLET PO PRN ×2 (12:17→18:07)
[2020-06-27 05:01] LABS: BUN/Creatinine Ratio 23 (6-26); Blood Urea Nitrogen 18 mg/dL (8-23); Calcium 9.2 mg/dL (8.6-10.3); Carbon Dioxide 40 mEq/L (23-29); Chloride 91 mEq/L (98-107); Glucose 108 mg/dL (70-105); Osmolality,Calculated 284 (280-300); Potassium 4.4 mEq/L (3.5-5.1); Sodium 136 mEq/L (136-145); eGFR For African Americans > 60 (> 60); eGFR For Non-African Americans > 60 (> 60)
[2020-06-27] MEDS: cefTRIAXone 1,000 MG in Water for inj. (sterile) 10 ML IVP SCH (08:51)
[2020-06-27] MEDS: Spironolactone 25 MG TABLET PO SCH (08:52)
[2020-06-27] MEDS: Propranolol LA (24 HR) 60 MG CAP.SA.24H PO SCH (08:52)
[2020-06-27] MEDS: amLODIPine 5 MG TABLET PO SCH (08:52)
[2020-06-27] MEDS: Pregabalin 75 MG CAPSULE PO SCH ×3 (08:52→20:04)
[2020-06-27] MEDS: *HR* OxyCODONE/APAP 10/325 TABLET PO PRN ×3 (08:53→23:49)
[2020-06-27] MEDS: Loratadine 10 MG TABLET PO SCH (08:53)
[2020-06-27] MEDS: allopurinoL 300 MG TABLET PO SCH (08:53)
[2020-06-28 05:42] LABS: BUN/Creatinine Ratio 24 (6-26); Blood Urea Nitrogen 16 mg/dL (8-23); Carbon Dioxide 39 mEq/L (23-29); Chloride 92 mEq/L (98-107); Glucose 101 mg/dL (70-105); Osmolality,Calculated 279 (280-300); Potassium 4.5 mEq/L (3.5-5.1); Sodium 134 mEq/L (136-145); eGFR For African Americans > 60 (> 60); eGFR For Non-African Americans > 60 (> 60)
[2020-06-28] MEDS ORDERED: Furosemide 40 MG TABLET PO SCH (08:00)
[2020-06-28] MEDS: Spironolactone 25 MG TABLET PO SCH (08:00)
[2020-06-28] MEDS: Propranolol LA (24 HR) 60 MG CAP.SA.24H PO SCH (08:01)
[2020-06-28] MEDS: Pregabalin 75 MG CAPSULE PO SCH (08:01)
[2020-06-28] MEDS: cefTRIAXone 1,000 MG in Water for inj. (sterile) 10 ML IVP SCH (08:01)
[2020-06-28] MEDS: Loratadine 10 MG TABLET PO SCH (08:01)
[2020-06-28] MEDS: allopurinoL 300 MG TABLET PO SCH (08:01)
[2020-06-28] MEDS: amLODIPine 5 MG TABLET PO SCH (08:01)
[2020-06-28 08:06] VITALS: BP 115/72
[2020-06-28] MEDS: *HR* OxyCODONE/APAP 10/325 TABLET PO PRN ×2 (10:34→15:28)
== END 2020-06-28 15:15 | DRG 602 ==
LOC: EMEROOARM 18:46 → 3ANU 18:46 → SUATTDRO 23:37 → 3ANU 06-24 00:02
PROVIDERS: ADMIT Family Medicine; ATTEND Internal Medicine

== ENCOUNTER 2020-07-08 13:57 | Inpatient (IN) ==
[2020-07-08] MEDS ORDERED: 0.9 % Sodium Chloride 1,000 ML IVC ONE (14:44)
[2020-07-08 15:32] LABS: Immature Granulocytes % 0.5 % (0-4); Nucleated Red Blood Cells 0.5 /100 WBC (0)
[2020-07-08 15:33] LABS: Basophils % 0.7 %; Eosinophils % 0.7 %; Hematocrit 44.7 % (35.3-44.9); Hemoglobin 12.6 g/dL (11.5-15.4); Immature Platelets 7.1 % (1.1-6.1); Lymphocytes # 0.9 K/mcL (0.6-4.6); Lymphocytes % 20.9 %; Mean Corpuscular HGB Conc 28.2 g/dL (31.6-35.5); Monocytes # 0.5 K/mcL (0.0-1.3); Monocytes % 11.4 %; Neutrophils # 2.7 K/mcL (1.6-8.9); Platelet Count 155 K/mcL (140-400); Red Blood Count 5.26 M/mcL (3.82-4.97); Red Cell Distribution Width 20.9 % (11.5-14.5); Segmented Neutrophils % 65.8 %; White Blood Count 4.1 K/mcL (4.3-11.1)
[2020-07-08 15:54] LABS: Alanine Aminotransferase 19 Units/L (7-52); Albumin 3.4 g/dL (3.5-5.7); Albumin/Globulin Ratio 1.1 (1.1-2.2); Alkaline Phosphatase 90 Units/L (34-104); Aspartate Amino Transferase 28 Units/L (13-39); BUN/Creatinine Ratio 32 (6-26); Bilirubin,Total 0.4 mg/dL (0.3-1.0); Blood Urea Nitrogen 51 mg/dL (8-23); Calcium 8.7 mg/dL (8.6-10.3); Carbon Dioxide 30 mEq/L (23-29); Chloride 101 mEq/L (98-107); Glucose 91 mg/dL (70-105); Osmolality,Calculated 295 (280-300); Potassium 5.9 mEq/L (3.5-5.1); Sodium 136 mEq/L (136-145); Total Protein 6.4 g/dL (6.4-8.9); eGFR For African Americans 39 (> 60); eGFR For Non-African Americans 32 (> 60)
[2020-07-08] MEDS ORDERED: levoFLOXacin 750 MG/150 ML 750 MG/150 ML BAG IVPB ONE (15:54)
[2020-07-08 15:55] LABS: Troponin I < 0.03 ng/mL (< 0.04)
[2020-07-08 15:57] LABS: Microcytosis Present (Not Present); Polychromasia 1+ (Not Present)
[2020-07-08 15:58] LABS: Anisocytosis 2+ (Not Present)
[2020-07-08 16:08] LABS: Thyroid Stimulating Hormone 1.051 mcIU/mL (0.340-5.600)
[2020-07-08 16:42] LABS: Bilirubin,Urine Negative (Negative); Blood,Urine Negative (Negative); Clarity,Urine Clear (Clear); Color,Urine Yellow (Yellow); Glucose,Urine (UA) Normal (Normal); Ketones,Urine Negative (Negative); Leukocyte Esterase,Urine Negative (Negative); Nitrite,Urine Negative (Negative); PH,Urine 5.5 pH Units (5.0-8.0); Protein,Urine Trace mg/dL (Neg-Trace); Specific Gravity,Urine 1.024 (1.010-1.025); Urobilinogen,Urine Normal (Normal)
[2020-07-08 16:50] LABS: Activated Partial Thrombo Time 26.9 Seconds (26.0-36.0)
[2020-07-08 17:04] LABS: C-Reactive Protein 82 mg/L (Less than 10); Lactate Dehydrogenase 234 Units/L (140-271); Magnesium 1.9 mg/dL (1.6-2.6); Phosphorous 3.5 mg/dL (2.7-4.5)
[2020-07-08 17:06] LABS: Troponin I < 0.03 ng/mL (< 0.04)
[2020-07-08 17:25] LABS: Ferritin 31 ng/mL (10-120)
[2020-07-08 17:31] LABS: Adenovirus Not Detected (Not Detect); Coronavirus 229E Not Detected (Not Detect); Coronavirus HKU1 Not Detected (Not Detect); Coronavirus NL63 Not Detected (Not Detect); Coronavirus OC43 Not Detected (Not Detect)
[2020-07-08 17:33] LABS: Bordetella Pertussis Not Detected (Not Detect); Chlamydophila pneumoniae Not Detected (Not Detect); Human Metapneumovirus Not Detected (Not Detect); Human Rhinovirus/Enterovirus Not Detected (Not Detect); Influenza A Subtype 2009 H1 Not Detected (Not Detect); Influenza B Not Detected (Not Detect); Mycoplasma pneumoniae Not Detected (Not Detect); Parainfluenza Virus 1 Not Detected (Not Detect); Parainfluenza Virus 2 Not Detected (Not Detect); Parainfluenza Virus 3 Not Detected (Not Detect); Parainfluenza Virus 4 Not Detected (Not Detect); Respiratory Syncytial Virus Not Detected (Not Detect); SARS-CoV-2 DETECTED (Not Detect)
[2020-07-08] MEDS ORDERED: Ondansetron 4 MG/2 ML VIAL IVP PRN (19:37)
[2020-07-08] MEDS ORDERED: Naloxone 0.4 MG/ML INJ IVP PRN (19:37)
[2020-07-08] MEDS ORDERED: Isovue-370 500 ML BOTTLE IVP ONE (19:47)
[2020-07-08] MEDS ORDERED: Ringers Solution, Lactated 1,000 ML IVC SCH (20:00)
[2020-07-09] MEDS: *HR* OxyCODONE/APAP 10/325 TABLET PO PRN ×3 (00:51→22:54)
[2020-07-09] MEDS ORDERED: Insulin Human Regular 10 UNIT in 0.9 % Sodium Chloride 10 ML IV ONE (01:22)
[2020-07-09] MEDS ORDERED: *HR* Dextrose 50 % in Water (Vial) 50 ML VIAL IVP ONE (01:22)
[2020-07-09] MEDS ORDERED: D5% in Water 1,000 ML IVC PRN (01:23)
[2020-07-09] MEDS ORDERED: *HR* Dextrose 50 % in Water (Vial) 50 ML VIAL IVP PRN (01:23)
[2020-07-09] MEDS ORDERED: Dextrose Gel 15 GM/37.5 ML TUBE PO PRN ×2 (01:23)
[2020-07-09] MEDS ORDERED: SODIUM ZIRCONIUM CYCLOSILICATE 5 GM POWD.PACK PO ONE (01:24)
[2020-07-09] MEDS ORDERED: 0.9 % Sodium Chloride 1,000 ML IVC SCH (01:30)
[2020-07-09 06:43] LABS: Hematocrit 44.8 % (35.3-44.9); Hemoglobin 12.6 g/dL (11.5-15.4); Mean Corpuscular HGB Conc 28.1 g/dL (31.6-35.5)
[2020-07-09 06:46] LABS: Basophils % 0.4 %; Immature Granulocytes % 1.1 % (0-4); Immature Platelets 6.7 % (1.1-6.1); Lymphocytes # 0.5 K/mcL (0.6-4.6); Lymphocytes % 19.5 %; Mean Corpuscular Hemoglobin 23.7 pg (28.0-33.3); Mean Corpuscular Volume 84.2 fL (83.0-100.0); Monocytes # 0.1 K/mcL (0.0-1.3); Monocytes % 3.8 %; Platelet Count 153 K/mcL (140-400); Red Blood Count 5.32 M/mcL (3.82-4.97); Red Cell Distribution Width 20.8 % (11.5-14.5); Segmented Neutrophils % 75.2 %; White Blood Count 2.6 K/mcL (4.3-11.1)
[2020-07-09 06:47] LABS: INR 1.1; Prothrombin Time 12.2 Seconds (9.4-12.1)
[2020-07-09 07:04] LABS: Alanine Aminotransferase 15 Units/L (7-52); Albumin 3.2 g/dL (3.5-5.7); Albumin/Globulin Ratio 1.1 (1.1-2.2); Alkaline Phosphatase 83 Units/L (34-104); Aspartate Amino Transferase 19 Units/L (13-39); BUN/Creatinine Ratio 38 (6-26); Bilirubin,Total 0.3 mg/dL (0.3-1.0); Blood Urea Nitrogen 39 mg/dL (8-23); Calcium 8.6 mg/dL (8.6-10.3); Carbon Dioxide 28 mEq/L (23-29); Chloride 103 mEq/L (98-107); Chol/HDL Ratio 6.6 (0-4.9); Cholesterol 139 mg/dL (< 200); Globulin 2.9 g/dL (2.4-3.5); Glucose 216 mg/dL (70-105); HDL Cholesterol 21 mg/dL (40-59); LDL Cholesterol,Calculated 94 mg/dL (< 100); Lactate Dehydrogenase 213 Units/L (140-271); Magnesium 1.9 mg/dL (1.6-2.6); Osmolality,Calculated 300 (280-300); Potassium 5.8 mEq/L (3.5-5.1); Sodium 137 mEq/L (136-145); Total Protein 6.1 g/dL (6.4-8.9); Triglycerides 121 mg/dL (< 150); eGFR For African Americans > 60 (> 60); eGFR For Non-African Americans 54 (> 60)
[2020-07-09 07:14] LABS: Anisocytosis 1+ (Not Present); Hypochromasia Present (Not Present); Macrocytosis Present (Not Present); Microcytosis Present (Not Present); Platelet Estimate Slight Decrease (Normal)
[2020-07-09 07:19] LABS: Ferritin 26 ng/mL (10-120)
[2020-07-09] MEDS: Aspirin Enteric Coated 81 MG Tablet PO SCH (07:36)
[2020-07-09 08:37] LABS: C-Reactive Protein 50 mg/L (Less than 10)
[2020-07-09] MEDS ORDERED: Dexamethasone Sodium Phos/PF 10 MG/ML VIAL IVP SCH (09:00)
[2020-07-09] MEDS ORDERED: *HR* LORazepam 0.5 MG TABLET PO ONE (11:14)
[2020-07-09] MEDS: Insulin LISPRO 300 UNITS/3 ML VIAL SUBQ SCH ×5 (13:14→20:35)
[2020-07-09] MEDS: levoFLOXacin 750 MG/150 ML 750 MG/150 ML BAG IVPB SCH (17:59)
[2020-07-09] MEDS: Insulin DETEMIR 100 UNIT/ML X5UNITS SUBQ SCH (19:57)
[2020-07-10 02:12] LABS: BUN/Creatinine Ratio 36 (6-26); Blood Urea Nitrogen 28 mg/dL (8-23); Calcium 8.9 mg/dL (8.6-10.3); Carbon Dioxide 28 mEq/L (23-29); Chloride 103 mEq/L (98-107); Glucose 92 mg/dL (70-105); Osmolality,Calculated 289 (280-300); Potassium 4.8 mEq/L (3.5-5.1); Sodium 137 mEq/L (136-145); eGFR For African Americans > 60 (> 60); eGFR For Non-African Americans > 60 (> 60)
[2020-07-10] MEDS ORDERED: *HR* LORazepam 1 MG TABLET PO ONE (02:27)
[2020-07-10 02:28] LABS: Hematocrit 43.9 % (35.3-44.9); Hemoglobin 12.4 g/dL (11.5-15.4); Mean Corpuscular HGB Conc 28.2 g/dL (31.6-35.5); Mean Corpuscular Hemoglobin 23.8 pg (28.0-33.3); Mean Corpuscular Volume 84.3 fL (83.0-100.0); Red Blood Count 5.21 M/mcL (3.82-4.97); Red Cell Distribution Width 20.4 % (11.5-14.5); White Blood Count 4.7 K/mcL (4.3-11.1)
[2020-07-10] MEDS: Insulin LISPRO 300 UNITS/3 ML VIAL SUBQ SCH ×4 (07:52→19:31)
[2020-07-10] MEDS: Aspirin Enteric Coated 81 MG Tablet PO SCH (07:55)
[2020-07-10] MEDS: amLODIPine 5 MG TABLET PO SCH (07:58)
[2020-07-10] MEDS: allopurinoL 300 MG TABLET PO SCH (07:58)
[2020-07-10] MEDS: Pregabalin 75 MG CAPSULE PO SCH ×3 (07:58→19:28)
[2020-07-10] MEDS: Loratadine 10 MG TABLET PO SCH (08:00)
[2020-07-10] MEDS: Propranolol LA (24 HR) 60 MG CAP.SA.24H PO SCH (08:00)
[2020-07-10] MEDS: levoFLOXacin 750 MG/150 ML 750 MG/150 ML BAG IVPB SCH (08:01)
[2020-07-10] MEDS: Furosemide 40 MG TABLET PO SCH ×2 (08:01→15:21)
[2020-07-10 08:10] LABS: Estimated Average Glucose 117 mg/dl; Hemoglobin A1C 5.7 %
[2020-07-10 08:33] LABS: Protein/Creatinine Ratio,Urine 0.34 mg/mg (0.00-0.20); Sodium, Urine 63.6 mEq/L
[2020-07-10] MEDS ORDERED: *HR* LORazepam 2 MG/ML VIAL IVP PRN (08:36)
[2020-07-10] MEDS: *HR* OxyCODONE/APAP 10/325 TABLET PO PRN ×2 (09:49→17:54)
[2020-07-10] MEDS: *HR* Enoxaparin 40 MG/0.4 ML SYRINGE SQ SCH (17:13)
[2020-07-10] MEDS: polyethylene glycoL 3350 17 GM POWD.PACK PO SCH ×2 (17:14→18:10)
[2020-07-10] MEDS ORDERED: *HR* Heparin 5,000 UNIT/ML VIAL SQ SCH (18:00)
[2020-07-10] MEDS: Insulin DETEMIR 100 UNIT/ML X5UNITS SUBQ SCH (19:28)
[2020-07-11] MEDS: *HR* OxyCODONE/APAP 10/325 TABLET PO PRN ×2 (02:25→10:54)
[2020-07-11 03:19] LABS: BUN/Creatinine Ratio 28 (6-26); Blood Urea Nitrogen 26 mg/dL (8-23); Calcium 9.2 mg/dL (8.6-10.3); Carbon Dioxide 37 mEq/L (23-29); Chloride 99 mEq/L (98-107); Glucose 88 mg/dL (70-105); Osmolality,Calculated 292 (280-300); Potassium 4.4 mEq/L (3.5-5.1); Sodium 139 mEq/L (136-145); eGFR For African Americans > 60 (> 60); eGFR For Non-African Americans > 60 (> 60)
[2020-07-11 03:28] LABS: Hematocrit 42.5 % (35.3-44.9); Immature Platelets 7.1 % (1.1-6.1); Mean Corpuscular HGB Conc 28.2 g/dL (31.6-35.5); Mean Corpuscular Hemoglobin 23.2 pg (28.0-33.3); Mean Corpuscular Volume 82.2 fL (83.0-100.0); Platelet Count 155 K/mcL (140-400); Red Blood Count 5.17 M/mcL (3.82-4.97); Red Cell Distribution Width 20.3 % (11.5-14.5); White Blood Count 4.7 K/mcL (4.3-11.1)
[2020-07-11] MEDS: *HR* Enoxaparin 40 MG/0.4 ML SYRINGE SQ SCH ×2 (04:55→17:16)
[2020-07-11] MEDS: Insulin LISPRO 300 UNITS/3 ML VIAL SUBQ SCH ×4 (08:47→20:36)
[2020-07-11] MEDS: Aspirin Enteric Coated 81 MG Tablet PO SCH (08:53)
[2020-07-11] MEDS: Furosemide 40 MG TABLET PO SCH ×2 (08:53→17:16)
[2020-07-11] MEDS: allopurinoL 300 MG TABLET PO SCH (08:53)
[2020-07-11] MEDS: polyethylene glycoL 3350 17 GM POWD.PACK PO SCH (08:54)
[2020-07-11] MEDS: Loratadine 10 MG TABLET PO SCH (08:55)
[2020-07-11] MEDS: Propranolol LA (24 HR) 60 MG CAP.SA.24H PO SCH (08:55)
[2020-07-11] MEDS: levoFLOXacin 750 MG/150 ML 750 MG/150 ML BAG IVPB SCH (08:55)
[2020-07-11] MEDS: Pregabalin 75 MG CAPSULE PO SCH ×3 (08:56→20:39)
[2020-07-11] MEDS: amLODIPine 5 MG TABLET PO SCH (08:56)
[2020-07-11] MEDS ORDERED: Isovue-370 500 ML BOTTLE IVP ONE (09:25)
[2020-07-11] MEDS ORDERED: *HR* LORazepam 2 MG/ML VIAL IVP PRN (09:27)
[2020-07-12] MEDS: *HR* OxyCODONE/APAP 10/325 TABLET PO PRN ×3 (00:48→20:15)
[2020-07-12 02:18] LABS: Basophils % 0.6 %
[2020-07-12 02:21] LABS: Eosinophils # 0.1 K/mcL (0.0-0.6); Eosinophils % 2.6 %; Hematocrit 42.4 % (35.3-44.9); Hemoglobin 12.2 g/dL (11.5-15.4); Immature Granulocytes % 1.3 % (0-4); Lymphocytes % 17.9 %; Mean Corpuscular HGB Conc 28.8 g/dL (31.6-35.5); Mean Corpuscular Hemoglobin 23.2 pg (28.0-33.3); Mean Corpuscular Volume 80.6 fL (83.0-100.0); Monocytes # 0.7 K/mcL (0.0-1.3); Monocytes % 12.5 %; Neutrophils # 3.5 K/mcL (1.6-8.9); Red Blood Count 5.26 M/mcL (3.82-4.97); Red Cell Distribution Width 19.9 % (11.5-14.5); Segmented Neutrophils % 65.1 %; White Blood Count 5.4 K/mcL (4.3-11.1)
[2020-07-12 02:41] LABS: BUN/Creatinine Ratio 27 (6-26); Blood Urea Nitrogen 25 mg/dL (8-23); Calcium 8.5 mg/dL (8.6-10.3); Carbon Dioxide 35 mEq/L (23-29); Chloride 95 mEq/L (98-107); Glucose 90 mg/dL (70-105); Osmolality,Calculated 286 (280-300); Potassium 4.5 mEq/L (3.5-5.1); Sodium 136 mEq/L (136-145); eGFR For African Americans > 60 (> 60); eGFR For Non-African Americans > 60 (> 60)
[2020-07-12] MEDS: *HR* Enoxaparin 40 MG/0.4 ML SYRINGE SQ SCH ×2 (05:05→16:59)
[2020-07-12] MEDS ORDERED: levoFLOXacin 750 MG TABLET PO SCH (09:00)
[2020-07-12] MEDS: Pregabalin 75 MG CAPSULE PO SCH ×3 (09:08→19:52)
[2020-07-12] MEDS: Loratadine 10 MG TABLET PO SCH (09:08)
[2020-07-12] MEDS: Aspirin Enteric Coated 81 MG Tablet PO SCH (09:08)
[2020-07-12] MEDS: Propranolol LA (24 HR) 60 MG CAP.SA.24H PO SCH (09:08)
[2020-07-12] MEDS: allopurinoL 300 MG TABLET PO SCH (09:08)
[2020-07-12] MEDS: Furosemide 40 MG TABLET PO SCH ×2 (09:08→16:59)
[2020-07-12] MEDS: amLODIPine 5 MG TABLET PO SCH (09:09)
[2020-07-12] MEDS: Insulin LISPRO 300 UNITS/3 ML VIAL SUBQ SCH ×4 (09:10→19:48)
[2020-07-13 00:47] LABS: Immature Granulocytes % 0.5 % (0-4); Red Cell Distribution Width 19.9 % (11.5-14.5)
[2020-07-13 00:48] LABS: Basophils % 0.7 %; Eosinophils # 0.2 K/mcL (0.0-0.6); Eosinophils % 2.4 %; Hematocrit 42.5 % (35.3-44.9); Immature Platelets 8.8 % (1.1-6.1); Lymphocytes % 16.1 %; Mean Corpuscular HGB Conc 28.2 g/dL (31.6-35.5); Mean Corpuscular Hemoglobin 22.9 pg (28.0-33.3); Monocytes # 0.7 K/mcL (0.0-1.3); Monocytes % 10.6 %; Neutrophils # 4.3 K/mcL (1.6-8.9); Red Blood Count 5.25 M/mcL (3.82-4.97); Segmented Neutrophils % 69.7 %; White Blood Count 6.1 K/mcL (4.3-11.1)
[2020-07-13 01:06] LABS: BUN/Creatinine Ratio 28 (6-26); Blood Urea Nitrogen 28 mg/dL (8-23); Calcium 8.4 mg/dL (8.6-10.3); Carbon Dioxide 38 mEq/L (23-29); Chloride 94 mEq/L (98-107); Glucose 108 mg/dL (70-105); Osmolality,Calculated 288 (280-300); Potassium 3.9 mEq/L (3.5-5.1); Sodium 136 mEq/L (136-145); eGFR For African Americans > 60 (> 60); eGFR For Non-African Americans 55 (> 60)
[2020-07-13] MEDS: *HR* Enoxaparin 40 MG/0.4 ML SYRINGE SQ SCH ×2 (05:22→17:43)
[2020-07-13] MEDS: Insulin LISPRO 300 UNITS/3 ML VIAL SUBQ SCH ×3 (07:58→16:41)
[2020-07-13] MEDS: Propranolol LA (24 HR) 60 MG CAP.SA.24H PO SCH (09:22)
[2020-07-13] MEDS: Aspirin Enteric Coated 81 MG Tablet PO SCH (09:23)
[2020-07-13] MEDS: Furosemide 40 MG TABLET PO SCH ×2 (09:23→17:43)
[2020-07-13] MEDS: polyethylene glycoL 3350 17 GM POWD.PACK PO SCH (09:23)
[2020-07-13] MEDS: amLODIPine 5 MG TABLET PO SCH (09:23)
[2020-07-13] MEDS: allopurinoL 300 MG TABLET PO SCH (09:23)
[2020-07-13] MEDS: Loratadine 10 MG TABLET PO SCH (09:23)
[2020-07-13] MEDS: *HR* OxyCODONE/APAP 10/325 TABLET PO PRN (09:23)
[2020-07-13] MEDS: Pregabalin 75 MG CAPSULE PO SCH ×2 (09:24→14:27)
[2020-07-13 16:50] VITALS: BP 109/63
== END 2020-07-13 18:16 | DRG 177 ==
LOC: EMEROOARM 13:57 → 2NENU 13:57 → SUATTDRO 19:45 → 2NENU 20:23
PROVIDERS: ADMIT Family Medicine; ATTEND Family Medicine

== ENCOUNTER 2021-09-23 11:52 | Inpatient (IN) ==
[2021-09-23] MEDS ORDERED: 0.9 % Sodium Chloride 1,000 ML IVC ONE ×2 (11:57→15:05)
[2021-09-23] MEDS ORDERED: Morphine Sulfate 2 MG/ML SYRINGE IVP ONE (11:57)
[2021-09-23] MEDS ORDERED: Ondansetron 4 MG/2 ML VIAL IVP ONE (11:57)
[2021-09-23] MEDS ORDERED: Isovue-370 500 ML BOTTLE IVP ONE (11:58)
[2021-09-23 12:12] LABS: Eosinophils % 0.1 %
[2021-09-23 12:18] LABS: Basophils % 0.3 %; Mean Corpuscular Volume 89.9 fL (83.0-100.0)
[2021-09-23 12:20] LABS: Hematocrit 52.5 % (35.3-44.9); Hemoglobin 17.3 g/dL (11.5-15.4); Immature Granulocytes % 0.4 % (0-4); Lymphocytes # 0.8 K/mcL (0.6-4.6); Lymphocytes % 7.6 %; Mean Corpuscular Hemoglobin 29.6 pg (28.0-33.3); Monocytes # 0.6 K/mcL (0.0-1.3); Monocytes % 5.5 %; Neutrophils # 9.3 K/mcL (1.6-8.9); Red Blood Count 5.84 M/mcL (3.82-4.97); Red Cell Distribution Width 14.7 % (11.5-14.5); Segmented Neutrophils % 86.1 %; White Blood Count 10.8 K/mcL (4.3-11.1)
[2021-09-23] MEDS ORDERED: diazePAM 10 MG/2 ML SYRINGE IVP ONE (12:57)
[2021-09-23] MEDS ORDERED: diazePAM 10 MG/2 ML SYRINGE IVP STA (14:03)
[2021-09-23 14:13] LABS: Bacteria,Urine Many per hpf (None-Few); Bilirubin,Urine Negative (Negative); Blood,Urine Negative (Negative); Clarity,Urine Turbid (Clear); Color,Urine Yellow (Yellow); Glucose,Urine (UA) Normal (Normal); Ketones,Urine 20 mg/dL (Negative); Leukocyte Esterase,Urine Large (Negative); Mucus,Urine Few per lpf (None-Few); Nitrite,Urine Negative (Negative); PH,Urine 5.5 pH Units (5.0-8.0); Protein,Urine 200 mg/dL (Neg-Trace); Specific Gravity,Urine > 1.030 (1.010-1.025); Squamous Epithelial Cell,Urine Few per hpf (None-Few); WBC,Urine 30-50 per hpf (0-3)
[2021-09-23] MEDS ORDERED: cefTRIAXone 1,000 MG in 0.9 % Sodium Chloride 10 ML IVP ONE (14:30)
[2021-09-23 14:57] LABS: Alanine Aminotransferase 14 Units/L (7-52); Albumin 3.9 g/dL (3.5-5.7); Albumin/Globulin Ratio 1.1 (1.1-2.2); Alkaline Phosphatase 113 Units/L (34-104); Amylase 369 Units/L (29-103); Aspartate Amino Transferase 34 Units/L (13-39); BUN/Creatinine Ratio 34 (6-26); Bilirubin,Direct 0.2 mg/dL (0.0-0.2); Bilirubin,Indirect 0.9 mg/dL (0.0-1.0); Bilirubin,Total 1.1 mg/dL (0.3-1.0); Blood Urea Nitrogen 26 mg/dL (8-23); Carbon Dioxide 23 mEq/L (23-29); Chloride 100 mEq/L (98-107); Globulin 3.5 g/dL (2.4-3.5); Glucose 140 mg/dL (70-105); Lipase 1072 Units/L (11-82); Osmolality,Calculated 291 (280-300); Potassium 4.8 mEq/L (3.5-5.1); Sodium 137 mEq/L (136-145); Total Protein 7.4 g/dL (6.4-8.9); Troponin I 0.03 ng/mL (< 0.04); eGFR For African Americans > 60 (> 60); eGFR For Non-African Americans > 60 (> 60)
[2021-09-23] MEDS ORDERED: *HR* HYDROmorphone (PF) 1 MG/ML SYRINGE IVP STA (15:05)
[2021-09-23] MEDS ORDERED: Ketorolac 30 MG/ML VIAL IVP STA (15:05)
[2021-09-23] MEDS ORDERED: Naloxone 0.4 MG/ML INJ IVP PRN (16:05)
[2021-09-23] MEDS ORDERED: Ondansetron 4 MG/2 ML VIAL IVP PRN ×2 (16:05→21:59)
[2021-09-23] MEDS ORDERED: Ketorolac 30 MG/ML VIAL IM PRN (16:05)
[2021-09-23] MEDS: 0.9 % Sodium Chloride 1,000 ML IVC SCH (18:41)
[2021-09-23] MEDS ORDERED: Lidocaine -MPF 2% 2 ML VIAL ONE (18:46)
[2021-09-23] MEDS ORDERED: *HR* Rocuronium Bromide 50 MG/5 ML VIAL ONE ×2 (18:46→21:59)
[2021-09-23] MEDS ORDERED: Ondansetron 4 MG/2 ML VIAL ONE (18:46)
[2021-09-23] MEDS ORDERED: *HR* Succinylcholine 200 MG/10 ML VIAL IVP ONE (18:46)
[2021-09-23] MEDS ORDERED: Lidocaine HCL 4 ML Topical Solution (Laryng-O-Jet Kit Sterile Pak) TP ONE (18:46)
[2021-09-23] MEDS ORDERED: *HR* FentaNYL (PF) 100 MCG/2 ML VIAL ONE ×2 (18:49→20:39)
[2021-09-23] MEDS ORDERED: *HR* Propofol 200 MG/20 ML VIAL IVP ONE (18:49)
[2021-09-23] MEDS ORDERED: *HR* Vasopressin 20 UNIT/ML VIAL ONE (18:55)
[2021-09-23] MEDS ORDERED: Lidocaine/EPI 1:100k 1% 50 ML VIAL ONE (19:15)
[2021-09-23] MEDS ORDERED: Famotidine 20 MG/2 ML VIAL ONE (21:04)
[2021-09-23] MEDS ORDERED: Acetaminophen IV 1,000 MG/100 ML BAG IVPB ONE ×2 (21:04→21:15)
[2021-09-23] MEDS ORDERED: Albumin Human 5% 12.5 GM/250 ML IV.SOLN ONE (21:04)
[2021-09-23] MEDS ORDERED: *HR* Metoprolol 5 MG/5 ML VIAL IVP ONE (21:28)
[2021-09-23] MEDS ORDERED: *HR* Metoprolol 5 MG/5 ML VIAL IVP PRN (21:59)
[2021-09-23] MEDS ORDERED: Ketamine HCL *QUVA* 50mg (1mL) SYRINGE ONE (22:06)
[2021-09-23] MEDS ORDERED: *HR* HYDROMORPHONE 2 MG/ML VIAL ONE (22:44)
[2021-09-23] MEDS ORDERED: Morphine PCA 30 MG/ 30 ML 30 ML PCA.VIAL IVC PRN (23:02)
[2021-09-23] MEDS: *HR* HYDROmorphone PF 0.5 MG/0.5 ML SYRINGE IVP PRN ×2 (23:27→23:46)
[2021-09-24] MEDS ORDERED: Vancomycin 2,000 MG/520 ML IV.SOLN IVPB ONE (00:01)
[2021-09-24] MEDS ORDERED: *HR* Metoprolol 5 MG/5 ML VIAL IVP ONE ×2 (00:39→04:10)
[2021-09-24] MEDS: *HR* Metoprolol 5 MG/5 ML VIAL IVP PRN (01:01)
[2021-09-24] MEDS: 0.9 % Sodium Chloride 1,000 ML IVC SCH ×6 (01:51→21:58)
[2021-09-24 04:04] LABS: Hematocrit 49.8 % (35.3-44.9); Mean Corpuscular HGB Conc 32.1 g/dL (31.6-35.5); Mean Corpuscular Hemoglobin 29.9 pg (28.0-33.3); Mean Corpuscular Volume 92.9 fL (83.0-100.0); Red Blood Count 5.36 M/mcL (3.82-4.97); Red Cell Distribution Width 15.1 % (11.5-14.5); White Blood Count 13.1 K/mcL (4.3-11.1)
[2021-09-24 05:21] LABS: BUN/Creatinine Ratio 31 (6-26); Blood Urea Nitrogen 25 mg/dL (8-23); Calcium 8.5 mg/dL (8.6-10.3); Carbon Dioxide 25 mEq/L (23-29); Chloride 104 mEq/L (98-107); Glucose 131 mg/dL (70-105); Magnesium 1.6 mg/dL (1.6-2.6); Osmolality,Calculated 290 (280-300); Phosphorous 4.7 mg/dL (2.7-4.5); Potassium 3.9 mEq/L (3.5-5.1); Sodium 137 mEq/L (136-145); eGFR For African Americans > 60 (> 60); eGFR For Non-African Americans > 60 (> 60)
[2021-09-24] MEDS: DilTIAZem 50 MG/50 ML IV.SOLN IVC SCH ×3 (08:32→22:44)
[2021-09-24] MEDS ORDERED: cefTRIAXone 2,000 MG in 0.9 % Sodium Chloride 20 ML IVP SCH (09:00)
[2021-09-24] MEDS ORDERED: Orphenadrine 60 MG/2 ML VIAL IVP PRN (09:50)
[2021-09-24] MEDS ORDERED: Saliva Stimulant 44.3ml BOTTLE PO PRN (09:52)
[2021-09-24] MEDS ORDERED: Chloraseptic Spray 177 ML BOTTLE MM PRN (09:52)
[2021-09-24] MEDS: Ketorolac 30 MG/ML VIAL IVP SCH ×4 (11:06→23:44)
[2021-09-24] MEDS: Acetaminophen IV 1,000 MG/100 ML BAG IVPB SCH ×3 (11:07→23:46)
[2021-09-24] MEDS: Pantoprazole 40 MG VIAL IVP SCH (11:07)
[2021-09-24] MEDS ORDERED: Perflutren Lipid Microsphere 1.3 ML in 0.9 % Sodium Chloride 8.7 ML IVP PRN (11:41)
[2021-09-24] MEDS ORDERED: Vancomycin 1,500 MG/265 ML IV.SOLN IVPB SCH (12:00)
[2021-09-24] MEDS: Cefepime HCl 2,000 MG in 0.9 % Sodium Chloride 10 ML IVP SCH ×2 (17:11→23:45)
[2021-09-24] MEDS: MetroNIDAZOLE 500 MG/100 ML 500 MG/100 ML BAG IVPB SCH (17:12)
[2021-09-24] MEDS: Furosemide 20 MG/2 ML VIAL IVP SCH (17:12)
[2021-09-25] MEDS: MetroNIDAZOLE 500 MG/100 ML 500 MG/100 ML BAG IVPB SCH ×4 (00:34→23:48)
[2021-09-25 01:21] LABS: Hematocrit 45.1 % (35.3-44.9); Hemoglobin 14.2 g/dL (11.5-15.4); Mean Corpuscular HGB Conc 31.5 g/dL (31.6-35.5); Mean Corpuscular Hemoglobin 29.6 pg (28.0-33.3); Mean Corpuscular Volume 94.2 fL (83.0-100.0); Platelet Count 105 K/mcL (140-400); Red Blood Count 4.79 M/mcL (3.82-4.97); Red Cell Distribution Width 14.9 % (11.5-14.5); White Blood Count 11.9 K/mcL (4.3-11.1)
[2021-09-25 01:40] LABS: BUN/Creatinine Ratio 36 (6-26); Blood Urea Nitrogen 28 mg/dL (8-23); Calcium 8.3 mg/dL (8.6-10.3); Carbon Dioxide 25 mEq/L (23-29); Chloride 106 mEq/L (98-107); Glucose 114 mg/dL (70-105); Magnesium 1.6 mg/dL (1.6-2.6); Osmolality,Calculated 294 (280-300); Phosphorous 3.5 mg/dL (2.7-4.5); Potassium 3.8 mEq/L (3.5-5.1); Sodium 139 mEq/L (136-145); eGFR For African Americans > 60 (> 60); eGFR For Non-African Americans > 60 (> 60)
[2021-09-25] MEDS: DilTIAZem 50 MG/50 ML IV.SOLN IVC SCH ×5 (03:10→23:57)
[2021-09-25] MEDS: Acetaminophen IV 1,000 MG/100 ML BAG IVPB SCH ×4 (06:09→23:47)
[2021-09-25] MEDS: 0.9 % Sodium Chloride 1,000 ML IVC SCH ×4 (06:12→23:47)
[2021-09-25] MEDS: Ketorolac 30 MG/ML VIAL IVP SCH ×4 (06:13→22:35)
[2021-09-25] MEDS: Furosemide 20 MG/2 ML VIAL IVP SCH ×2 (09:32→17:03)
[2021-09-25] MEDS: Pantoprazole 40 MG VIAL IVP SCH (09:33)
[2021-09-25] MEDS: Cefepime HCl 2,000 MG in 0.9 % Sodium Chloride 10 ML IVP SCH (09:50)
[2021-09-25] MEDS ORDERED: Piperacillin/Tazobactam 3.375 GM in 0.9 % Sodium Chloride Mini Bag 100 ML IVPB SCH (10:30)
[2021-09-25] MEDS ORDERED: Ertapenem 1,000 MG in 0.9 % Sodium Chloride Mini Bag 100 ML IVPB SCH (11:00)
[2021-09-25] MEDS ORDERED: Vancomycin 1,500 MG/265 ML IV.SOLN IVPB SCH (12:00)
[2021-09-25] MEDS: Fluconazole 400 MG/200 ML 400 MG/200 ML BAG IVPB SCH ×2 (15:29→17:13)
[2021-09-25] MEDS ORDERED: MetroNIDAZOLE 500 MG/100 ML 500 MG/100 ML BAG IVPB SCH (16:00)
[2021-09-25] MEDS ORDERED: Meropenem 1,000 MG in 0.9 % Sodium Chloride 20 ML IVP SCH (16:00)
[2021-09-25] MEDS: levoFLOXacin 750 MG/150 ML 750 MG/150 ML BAG IVPB SCH (16:31)
[2021-09-25] MEDS: diazePAM 10 MG/2 ML SYRINGE IVP PRN (22:35)
[2021-09-26 02:05] LABS: Hemoglobin 13.5 g/dL (11.5-15.4); Red Cell Distribution Width 15.2 % (11.5-14.5)
[2021-09-26 02:07] LABS: Mean Corpuscular HGB Conc 31.4 g/dL (31.6-35.5); Mean Corpuscular Hemoglobin 29.8 pg (28.0-33.3); Mean Corpuscular Volume 94.9 fL (83.0-100.0); Red Blood Count 4.53 M/mcL (3.82-4.97); White Blood Count 10.2 K/mcL (4.3-11.1)
[2021-09-26 04:08] LABS: Mean Platelet Volume 11.8 fL (9.4-12.4)
[2021-09-26 04:35] LABS: Blood Urea Nitrogen 33 mg/dL (8-23); Calcium 8.5 mg/dL (8.6-10.3); Carbon Dioxide 20 mEq/L (23-29); Chloride 109 mEq/L (98-107); Glucose 81 mg/dL (70-105); Magnesium 1.7 mg/dL (1.6-2.6); Osmolality,Calculated 298 (280-300); Phosphorous 2.4 mg/dL (2.7-4.5); Potassium 3.6 mEq/L (3.5-5.1); Sodium 141 mEq/L (136-145)
[2021-09-26] MEDS: diazePAM 10 MG/2 ML SYRINGE IVP PRN ×2 (04:41→21:52)
[2021-09-26 04:56] LABS: BUN/Creatinine Ratio 43 (6-26); eGFR For African Americans > 60 (> 60); eGFR For Non-African Americans > 60 (> 60)
[2021-09-26] MEDS: Acetaminophen IV 1,000 MG/100 ML BAG IVPB SCH ×4 (06:15→23:50)
[2021-09-26] MEDS: Ketorolac 30 MG/ML VIAL IVP SCH ×4 (06:15→23:49)
[2021-09-26] MEDS: DilTIAZem 50 MG/50 ML IV.SOLN IVC SCH ×2 (06:20→16:56)
[2021-09-26] MEDS: Furosemide 20 MG/2 ML VIAL IVP SCH ×2 (09:32→16:51)
[2021-09-26] MEDS: Pantoprazole 40 MG VIAL IVP SCH (09:32)
[2021-09-26] MEDS: MetroNIDAZOLE 500 MG/100 ML 500 MG/100 ML BAG IVPB SCH ×3 (09:33→23:50)
[2021-09-26] MEDS ORDERED: Morphine Sulfate 2 MG/ML SYRINGE IVP ONE (10:47)
[2021-09-26] MEDS: 0.9 % Sodium Chloride 1,000 ML IVC SCH ×4 (10:53→23:43)
[2021-09-26] MEDS: Fluconazole 400 MG/200 ML 400 MG/200 ML BAG IVPB SCH (10:53)
[2021-09-26] MEDS: levoFLOXacin 750 MG/150 ML 750 MG/150 ML BAG IVPB SCH (12:07)
[2021-09-27] MEDS: Ketorolac 30 MG/ML VIAL IVP SCH ×4 (05:35→23:51)
[2021-09-27] MEDS: Acetaminophen IV 1,000 MG/100 ML BAG IVPB SCH ×4 (05:35→23:54)
[2021-09-27 05:59] LABS: BUN/Creatinine Ratio 42 (6-26); Blood Urea Nitrogen 28 mg/dL (8-23); Calcium 8.8 mg/dL (8.6-10.3); Carbon Dioxide 26 mEq/L (23-29); Chloride 108 mEq/L (98-107); Glucose 88 mg/dL (70-105); Magnesium 1.6 mg/dL (1.6-2.6); Osmolality,Calculated 299 (280-300); Phosphorous 1.8 mg/dL (2.7-4.5); Potassium 3.4 mEq/L (3.5-5.1); Sodium 142 mEq/L (136-145); eGFR For African Americans > 60 (> 60); eGFR For Non-African Americans > 60 (> 60)
[2021-09-27] MEDS: *HR* Metoprolol 5 MG/5 ML VIAL IVP PRN ×3 (07:54→22:45)
[2021-09-27] MEDS: Pantoprazole 40 MG VIAL IVP SCH (07:54)
[2021-09-27] MEDS: Furosemide 20 MG/2 ML VIAL IVP SCH ×2 (07:54→15:39)
[2021-09-27] MEDS: MetroNIDAZOLE 500 MG/100 ML 500 MG/100 ML BAG IVPB SCH ×2 (07:59→15:40)
[2021-09-27] MEDS: levoFLOXacin 750 MG/150 ML 750 MG/150 ML BAG IVPB SCH (08:01)
[2021-09-27] MEDS: Fluconazole 400 MG/200 ML 400 MG/200 ML BAG IVPB SCH (08:01)
[2021-09-27] MEDS: 0.9 % Sodium Chloride 1,000 ML IVC SCH ×3 (08:04→23:50)
[2021-09-27 10:13] LABS: Mean Platelet Volume 11.9 fL (9.4-12.4)
[2021-09-27 10:19] LABS: Hematocrit 43.7 % (35.3-44.9); Hemoglobin 13.4 g/dL (11.5-15.4); Mean Corpuscular HGB Conc 30.7 g/dL (31.6-35.5); Mean Corpuscular Volume 97.8 fL (83.0-100.0); Red Blood Count 4.47 M/mcL (3.82-4.97); Red Cell Distribution Width 15.1 % (11.5-14.5); White Blood Count 9.9 K/mcL (4.3-11.1)
[2021-09-27] MEDS: diazePAM 10 MG/2 ML SYRINGE IVP PRN (22:04)
[2021-09-28] MEDS: MetroNIDAZOLE 500 MG/100 ML 500 MG/100 ML BAG IVPB SCH ×4 (00:42→23:09)
[2021-09-28] MEDS: Ketorolac 30 MG/ML VIAL IVP SCH ×2 (05:23→12:12)
[2021-09-28] MEDS: Acetaminophen IV 1,000 MG/100 ML BAG IVPB SCH (05:24)
[2021-09-28 05:32] LABS: BUN/Creatinine Ratio 37 (6-26); Blood Urea Nitrogen 27 mg/dL (8-23); Calcium 8.9 mg/dL (8.6-10.3); Carbon Dioxide 28 mEq/L (23-29); Chloride 105 mEq/L (98-107); Glucose 125 mg/dL (70-105); Osmolality,Calculated 295 (280-300); Sodium 139 mEq/L (136-145); eGFR For African Americans > 60 (> 60); eGFR For Non-African Americans > 60 (> 60)
[2021-09-28 05:54] LABS: Hematocrit 45.9 % (35.3-44.9); Hemoglobin 14.3 g/dL (11.5-15.4); Immature Platelets 12.8 % (1.1-6.1); Mean Corpuscular HGB Conc 31.2 g/dL (31.6-35.5); Mean Corpuscular Hemoglobin 29.7 pg (28.0-33.3); Mean Corpuscular Volume 95.4 fL (83.0-100.0); Red Blood Count 4.81 M/mcL (3.82-4.97); Red Cell Distribution Width 14.8 % (11.5-14.5); White Blood Count 10.5 K/mcL (4.3-11.1)
[2021-09-28 05:55] LABS: Platelet Count 106 K/mcL (140-400)
[2021-09-28] MEDS: Furosemide 20 MG/2 ML VIAL IVP SCH (07:49)
[2021-09-28] MEDS: Pantoprazole 40 MG VIAL IVP SCH (07:49)
[2021-09-28] MEDS: *HR* Metoprolol 5 MG/5 ML VIAL IVP PRN (07:49)
[2021-09-28] MEDS: Fluconazole 400 MG/200 ML 400 MG/200 ML BAG IVPB SCH (08:03)
[2021-09-28] MEDS: levoFLOXacin 750 MG/150 ML 750 MG/150 ML BAG IVPB SCH (12:12)
[2021-09-28] MEDS ORDERED: *HR* Metoprolol 5 MG/5 ML VIAL IVP ONE (13:13)
[2021-09-28] MEDS ORDERED: Acetaminophen 325 MG TABLET PO PRN (14:39)
[2021-09-28] MEDS: *HR* Rivaroxaban 10 MG TABLET PO SCH (16:14)
[2021-09-29 07:23] LABS: Hemoglobin 13.9 g/dL (11.5-15.4); Red Cell Distribution Width 14.7 % (11.5-14.5)
[2021-09-29 07:25] LABS: Hematocrit 44.8 % (35.3-44.9); Mean Corpuscular Hemoglobin 29.6 pg (28.0-33.3); Mean Corpuscular Volume 95.3 fL (83.0-100.0); White Blood Count 10.6 K/mcL (4.3-11.1)
[2021-09-29 07:26] LABS: BUN/Creatinine Ratio 54 (6-26); Blood Urea Nitrogen 27 mg/dL (8-23); Calcium 8.9 mg/dL (8.6-10.3); Carbon Dioxide 27 mEq/L (23-29); Chloride 106 mEq/L (98-107); Glucose 110 mg/dL (70-105); Osmolality,Calculated 290 (280-300); Potassium 4.7 mEq/L (3.5-5.1); Sodium 137 mEq/L (136-145); eGFR For African Americans > 60 (> 60); eGFR For Non-African Americans > 60 (> 60)
[2021-09-29] MEDS: Acetaminophen IV 1,000 MG/100 ML BAG IVPB SCH (07:30)
[2021-09-29] MEDS: MetroNIDAZOLE 500 MG/100 ML 500 MG/100 ML BAG IVPB SCH ×4 (07:37→23:07)
[2021-09-29] MEDS: FLUoxetine 20 MG CAPSULE PO SCH (07:43)
[2021-09-29] MEDS: Loratadine 10 MG TABLET PO SCH (07:43)
[2021-09-29] MEDS: lisinopriL 20 MG TABLET PO SCH (07:43)
[2021-09-29] MEDS: Fluconazole 400 MG/200 ML 400 MG/200 ML BAG IVPB SCH ×2 (07:44→14:16)
[2021-09-29] MEDS: Multivit/Ca/Min/Fe/FA 1 TAB TABLET PO SCH (07:48)
[2021-09-29] MEDS: levoFLOXacin 750 MG/150 ML 750 MG/150 ML BAG IVPB SCH (14:11)
[2021-09-29] MEDS: *HR* Metoprolol 5 MG/5 ML VIAL IVP PRN ×3 (16:47→17:48)
[2021-09-29] MEDS: *HR* Rivaroxaban 10 MG TABLET PO SCH (17:26)
[2021-09-30] MEDS: Multivit/Ca/Min/Fe/FA 1 TAB TABLET PO SCH (08:55)
[2021-09-30] MEDS: FLUoxetine 20 MG CAPSULE PO SCH (08:55)
[2021-09-30] MEDS: Loratadine 10 MG TABLET PO SCH (08:56)
[2021-09-30] MEDS: lisinopriL 20 MG TABLET PO SCH (08:56)
[2021-09-30] MEDS: MetroNIDAZOLE 500 MG/100 ML 500 MG/100 ML BAG IVPB SCH ×2 (08:57→15:42)
[2021-09-30] MEDS: Fluconazole 400 MG/200 ML 400 MG/200 ML BAG IVPB SCH (09:40)
[2021-09-30] MEDS: levoFLOXacin 750 MG/150 ML 750 MG/150 ML BAG IVPB SCH (09:41)
[2021-09-30] MEDS: *HR* Rivaroxaban 10 MG TABLET PO SCH (17:26)
[2021-10-01] MEDS: MetroNIDAZOLE 500 MG/100 ML 500 MG/100 ML BAG IVPB SCH ×3 (00:43→16:32)
[2021-10-01 01:28] LABS: Eosinophils % 0.6 %
[2021-10-01 01:29] LABS: Basophils % 0.3 %; Eosinophils # 0.1 K/mcL (0.0-0.6); Hemoglobin 12.4 g/dL (11.5-15.4); Immature Granulocytes % 1.1 % (0-4); Immature Platelets 7.6 % (1.1-6.1); Lymphocytes # 0.6 K/mcL (0.6-4.6); Lymphocytes % 6.2 %; Mean Corpuscular Hemoglobin 29.6 pg (28.0-33.3); Mean Corpuscular Volume 95.5 fL (83.0-100.0); Mean Platelet Volume 12.8 fL (9.4-12.4); Monocytes # 0.6 K/mcL (0.0-1.3); Red Blood Count 4.19 M/mcL (3.82-4.97); Red Cell Distribution Width 14.4 % (11.5-14.5); Segmented Neutrophils % 85.8 %; White Blood Count 10.1 K/mcL (4.3-11.1)
[2021-10-01 01:33] LABS: Neutrophils # 8.7 K/mcL (1.6-8.9)
[2021-10-01 01:44] LABS: BUN/Creatinine Ratio 55 (6-26); Blood Urea Nitrogen 23 mg/dL (8-23); Calcium 8.5 mg/dL (8.6-10.3); Carbon Dioxide 31 mEq/L (23-29); Chloride 103 mEq/L (98-107); Glucose 122 mg/dL (70-105); Osmolality,Calculated 291 (280-300); Potassium 4.6 mEq/L (3.5-5.1); Sodium 138 mEq/L (136-145); eGFR For African Americans > 60 (> 60); eGFR For Non-African Americans > 60 (> 60)
[2021-10-01] MEDS: levoFLOXacin 750 MG/150 ML 750 MG/150 ML BAG IVPB SCH (08:38)
[2021-10-01] MEDS: Fluconazole 400 MG/200 ML 400 MG/200 ML BAG IVPB SCH (08:39)
[2021-10-01] MEDS: lisinopriL 20 MG TABLET PO SCH (08:42)
[2021-10-01] MEDS: Multivit/Ca/Min/Fe/FA 1 TAB TABLET PO SCH (08:42)
[2021-10-01] MEDS: Loratadine 10 MG TABLET PO SCH (08:42)
[2021-10-01] MEDS: FLUoxetine 20 MG CAPSULE PO SCH (08:42)
[2021-10-01] MEDS: *HR* Rivaroxaban 10 MG TABLET PO SCH (16:32)
[2021-10-02] MEDS: Loratadine 10 MG TABLET PO SCH (09:37)
[2021-10-02] MEDS: FLUoxetine 20 MG CAPSULE PO SCH (09:37)
[2021-10-02] MEDS: Multivit/Ca/Min/Fe/FA 1 TAB TABLET PO SCH (09:37)
[2021-10-02] MEDS: lisinopriL 20 MG TABLET PO SCH (09:37)
[2021-10-02 10:57] VITALS: BP 131/82; PULSE 95; TEMP 97.4; O2SAT 93
[2021-10-02 12:21] LABS: Influenza A PCR Negative (Negative); Influenza B PCR Negative (Negative); Resp. Syncytial Virus PCR Negative (Negative)
[2021-10-02 12:26] LABS: SARS-CoV-2 by PCR (In House) Negative (Negative)
[2021-10-02] MEDS ORDERED: polyethylene glycoL 3350 17 GM POWD.PACK PO PRN (14:01)
== END 2021-10-02 15:07 | disposition other institution (70) | DRG 329 ==
LOC: EMEROOARM 11:52 → 3ANU 11:52 → SUATTDRO 18:39 → 2NNU 23:42 → 3ANU 09-27 14:05
PROVIDERS: ADMIT Internal Medicine; ATTEND Family Medicine

== ENCOUNTER 2021-11-10 13:08 | Inpatient (IN) ==
[2021-11-10] MEDS ORDERED: Iopamidol - 370 500 ML MLS IVP ONE (13:31)
[2021-11-10 14:15] LABS: Bacteria,Urine Few per hpf (None-Few); Bilirubin,Urine Negative (Negative); Blood,Urine Negative (Negative); Clarity,Urine Turbid (Clear); Color,Urine Yellow (Yellow); Glucose,Urine (UA) Normal (Normal); Hyaline Casts,Urine Many per lpf (None Seen); Ketones,Urine Negative (Negative); Leukocyte Esterase,Urine Negative (Negative); Mucus,Urine Few per lpf (None-Few); Nitrite,Urine Negative (Negative); PH,Urine 5.5 pH Units (5.0-8.0); Protein,Urine 70 mg/dL (Neg-Trace); RBC,Urine 0-3 per hpf (0-3); Squamous Epithelial Cell,Urine Few per hpf (None-Few); WBC,Urine 0-3 per hpf (0-3)
[2021-11-10 14:26] LABS: Hematocrit 42.4 % (35.3-44.9); Lymphocytes % 6.5 %; Red Cell Distribution Width 17.3 % (11.5-14.5)
[2021-11-10 14:27] LABS: Basophils % 0.2 %; Eosinophils % 0.1 %; Immature Granulocytes % 0.7 % (0-4); Lymphocytes # 0.8 K/mcL (0.6-4.6); Mean Corpuscular HGB Conc 28.3 g/dL (31.6-35.5); Mean Corpuscular Hemoglobin 26.5 pg (28.0-33.3); Mean Corpuscular Volume 93.8 fL (83.0-100.0); Mean Platelet Volume 12.1 fL (9.4-12.4); Monocytes # 0.6 K/mcL (0.0-1.3); Monocytes % 5.3 %; Platelet Count 123 K/mcL (140-400); Red Blood Count 4.52 M/mcL (3.82-4.97); Segmented Neutrophils % 87.2 %; White Blood Count 12.1 K/mcL (4.3-11.1)
[2021-11-10 14:34] LABS: Neutrophils # 10.6 K/mcL (1.6-8.9)
[2021-11-10 14:35] LABS: ABG Base Excess 0 mEq/L (-2 to 3); ABG HCO3 31 mEq/L (21-27); ABG Oxygen Saturation 97 % (95-98); ABG PCO2 78 mmHg (35-45); ABG PH 7.21 pH Units (7.32-7.45); ABG PO2 113 mmHg (85-104); ABG TCO2 33 mEq/L (20-26)
[2021-11-10 14:35] LABS: INR 1.1; Prothrombin Time 12.8 Seconds (9.4-12.1)
[2021-11-10 14:37] LABS: Alanine Aminotransferase 14 Units/L (7-52); Albumin 3.6 g/dL (3.5-5.7); Albumin/Globulin Ratio 1.1 (1.1-2.2); Alkaline Phosphatase 131 Units/L (34-104); Aspartate Amino Transferase 22 Units/L (13-39); BUN/Creatinine Ratio 20 (6-26); Bilirubin,Direct 0.1 mg/dL (0.0-0.2); Bilirubin,Indirect 0.5 mg/dL (0.0-1.0); Bilirubin,Total 0.6 mg/dL (0.3-1.0); Blood Urea Nitrogen 52 mg/dL (8-23); Calcium 9.2 mg/dL (8.6-10.3); Carbon Dioxide 28 mEq/L (23-29); Chloride 100 mEq/L (98-107); Creatine Kinase 137 Units/L (30-223); Ethanol < 10 mg/dL (Less than 10); Globulin 3.3 g/dL (2.4-3.5); Glucose 134 mg/dL (70-105); Osmolality,Calculated 302 (280-300); Potassium 5.2 mEq/L (3.5-5.1); Sodium 138 mEq/L (136-145); Total Protein 6.9 g/dL (6.4-8.9); eGFR For African Americans 22 (> 60); eGFR For Non-African Americans 18 (> 60)
[2021-11-10 14:38] LABS: Activated Partial Thrombo Time 30.9 Seconds (26.0-36.0)
[2021-11-10] MEDS ORDERED: 0.9 % Sodium Chloride 500 ML IV ONE ×2 (14:41→16:59)
[2021-11-10 14:45] LABS: Anisocytosis 1+ (Not Present); Hypochromasia Present (Not Present); Platelet Estimate Slight Decrease (Normal)
[2021-11-10 14:47] LABS: Amphetamine Screen,Urine Negative ng/mL (Cutoff=1000); Barbiturate Screen,Urine Negative ng/mL (Cutoff=200); Benzodiazepines Screen,Urine Positive ng/mL (Cutoff=200); Cannabinoid Screen,Urine Negative ng/mL (Cutoff = 50); Cocaine Screen,Urine Negative ng/mL (Cutoff= 300); Opiate Screen,Urine Positive ng/mL (Cutoff=300); Phencyclidine Screen,Urine Negative ng/mL (Cutoff=25)
[2021-11-10 14:49] LABS: Troponin I 0.12 ng/mL (< 0.04)
[2021-11-10] MEDS ORDERED: SODIUM ZIRCONIUM CYCLOSILICATE 5 GM POWD.PACK PO ONE (16:10)
[2021-11-10 16:48] LABS: VBG HCO3 25 mEq/L (21-27); VBG PCO2 58 mmHg (41-51); VBG PH 7.25 pH Units (7.32-7.42); VBG PO2 176 mmHg (25-50)
[2021-11-10] MEDS ORDERED: Furosemide 40 MG/4 ML VIAL IVP ONE (16:50)
[2021-11-10] MEDS ORDERED: Naloxone 0.4 MG/ML INJ IVP PRN (17:33)
[2021-11-10] MEDS ORDERED: Ondansetron 4 MG/2 ML VIAL IVP PRN (17:33)
[2021-11-10] MEDS ORDERED: 0.9 % Sodium Chloride 1,000 ML IVC SCH ×2 (17:45)
[2021-11-10] MEDS ORDERED: *HR* Heparin 5,000 UNIT/ML VIAL SQ SCH (18:00)
[2021-11-10 19:39] LABS: VBG HCO3 26 mEq/L (21-27); VBG PCO2 73 mmHg (41-51); VBG PH 7.15 pH Units (7.32-7.42); VBG PO2 185 mmHg (25-50)
[2021-11-10] MEDS ORDERED: *HR* Heparin 5,000 UNIT/ML VIAL IVP PRN ×2 (20:17)
[2021-11-10] MEDS ORDERED: *HR* Metoprolol 5 MG/5 ML VIAL IVP PRN (20:19)
[2021-11-10] MEDS ORDERED: Furosemide 20 MG/2 ML VIAL IVP ONE (21:14)
[2021-11-10] MEDS ORDERED: Furosemide 40 MG/4 ML VIAL ONE (21:16)
[2021-11-10 21:36] LABS: ABG Base Excess -2 mEq/L (-2 to 3); ABG HCO3 28 mEq/L (21-27); ABG Oxygen Saturation 97 % (95-98); ABG PCO2 66 mmHg (35-45); ABG PH 7.23 pH Units (7.32-7.45); ABG PO2 104 mmHg (85-104); ABG TCO2 30 mEq/L (20-26)
[2021-11-10 21:45] LABS: Activated Partial Thrombo Time 20.8 Seconds (26.0-36.0); Heparin anti-factor XA UFH < 0.04 IU/mL (0.30-0.70)
[2021-11-10] MEDS: Heparin 25,000UNIT/250ML 1/2NS 25,000 UNIT/250 ML IV.SOLN IVC SCH (21:52)
[2021-11-11] MEDS ORDERED: Dextrose Gel 15 GM/37.5 ML TUBE PO PRN ×2 (00:34)
[2021-11-11] MEDS ORDERED: D5% in Water 1,000 ML IVC PRN (00:34)
[2021-11-11] MEDS ORDERED: *HR* Dextrose 50 % in Water (Syg) 50 ML SYRINGE IVP PRN (00:34)
[2021-11-11] MEDS ORDERED: 0.9 % Sodium Chloride 500 ML ONE (00:41)
[2021-11-11] MEDS ORDERED: *HR* LORazepam 2 MG/ML VIAL IVP ONE (01:21)
[2021-11-11] MEDS ORDERED: 0.9 % Sodium Chloride 500 ML IVC ONE (03:05)
[2021-11-11] MEDS: Ipratropium/Albuterol Neb 3 ML IH SCH ×4 (03:23→23:04)
[2021-11-11 04:33] LABS: ABG Base Excess -1 mEq/L (-2 to 3); ABG HCO3 28 mEq/L (21-27); ABG Oxygen Saturation 94 % (95-98); ABG PCO2 66 mmHg (35-45); ABG PH 7.24 pH Units (7.32-7.45); ABG PO2 87 mmHg (85-104); ABG TCO2 30 mEq/L (20-26)
[2021-11-11 05:47] LABS: Basophils % 0.3 %; Hematocrit 36.8 % (35.3-44.9); Mean Corpuscular Volume 93.6 fL (83.0-100.0); Nucleated Red Blood Cells 1.4 /100 WBC (0); Red Blood Count 3.93 M/mcL (3.82-4.97)
[2021-11-11 05:48] LABS: Eosinophils # 0.1 K/mcL (0.0-0.6); Eosinophils % 0.6 %; Hemoglobin 10.6 g/dL (11.5-15.4); Immature Granulocytes % 0.8 % (0-4); Immature Platelets 6.6 % (1.1-6.1); Lymphocytes # 0.8 K/mcL (0.6-4.6); Lymphocytes % 7.2 %; Mean Corpuscular HGB Conc 28.8 g/dL (31.6-35.5); Mean Platelet Volume 13.2 fL (9.4-12.4); Monocytes # 0.8 K/mcL (0.0-1.3); Monocytes % 7.1 %; Neutrophils # 9.2 K/mcL (1.6-8.9); Platelet Count 162 K/mcL (140-400); Red Cell Distribution Width 17.5 % (11.5-14.5); White Blood Count 10.9 K/mcL (4.3-11.1)
[2021-11-11 06:07] LABS: Calcium 8.3 mg/dL (8.6-10.3); Chol/HDL Ratio 3.5 (0-4.9); Magnesium 2.1 mg/dL (1.6-2.6); Potassium 4.8 mEq/L (3.5-5.1)
[2021-11-11 06:13] LABS: Hypochromasia Present (Not Present)
[2021-11-11 07:33] LABS: Troponin I 0.16 ng/mL (< 0.04)
[2021-11-11] MEDS: Heparin 25,000UNIT/250ML 1/2NS 25,000 UNIT/250 ML IV.SOLN IVC SCH ×2 (08:13→20:13)
[2021-11-11] MEDS ORDERED: Ipratropium/Albuterol Neb 3 ML IH PRN (11:38)
[2021-11-11 12:50] LABS: Blood Gas Pressure Support 16 cm H2O; VBG HCO3 25 mEq/L (21-27); VBG PCO2 46 mmHg (41-51); VBG PH 7.35 pH Units (7.32-7.42); VBG PO2 28 mmHg (25-50)
[2021-11-11 14:33] LABS: Sodium, Urine 25.3 mEq/L
[2021-11-11 15:58] LABS: Protein/Creatinine Ratio,Urine 0.4 mg/mg (0.00-0.20)
[2021-11-11] MEDS: Furosemide 40 MG/4 ML VIAL IVP SCH (17:00)
[2021-11-11] MEDS: Albumin 25% 25gram/100mL 25 GM/100 ML IV.SOLN IVPB SCH (17:00)
[2021-11-11] MEDS: Doxycycline 100 MG in 0.9 % Sodium Chloride Mini Bag 100 ML IVPB SCH (18:45)
[2021-11-11] MEDS: Acetaminophen 325 MG TABLET PO PRN (22:47)
[2021-11-12] MEDS: Albumin 25% 25gram/100mL 25 GM/100 ML IV.SOLN IVPB SCH ×3 (00:39→17:00)
[2021-11-12] MEDS: Ipratropium/Albuterol Neb 3 ML IH SCH (03:56)
[2021-11-12] MEDS: Heparin 25,000UNIT/250ML 1/2NS 25,000 UNIT/250 ML IV.SOLN IVC SCH (06:40)
[2021-11-12] MEDS: Doxycycline 100 MG in 0.9 % Sodium Chloride Mini Bag 100 ML IVPB SCH ×2 (06:54→17:57)
[2021-11-12] MEDS: Furosemide 40 MG/4 ML VIAL IVP SCH (08:29)
[2021-11-12] MEDS: allopurinoL 300 MG TABLET PO SCH (08:29)
[2021-11-12 09:01] LABS: Eosinophils % 1.3 %; Mean Corpuscular Hemoglobin 26.3 pg (28.0-33.3); Red Cell Distribution Width 17.7 % (11.5-14.5)
[2021-11-12 09:03] LABS: Basophils % 0.4 %; Eosinophils # 0.1 K/mcL (0.0-0.6); Hematocrit 35.6 % (35.3-44.9); Hemoglobin 10.4 g/dL (11.5-15.4); Immature Granulocytes % 0.3 % (0-4); Lymphocytes # 0.7 K/mcL (0.6-4.6); Lymphocytes % 9.9 %; Mean Corpuscular HGB Conc 29.2 g/dL (31.6-35.5); Mean Corpuscular Volume 90.1 fL (83.0-100.0); Monocytes # 0.7 K/mcL (0.0-1.3); Monocytes % 10.3 %; Neutrophils # 5.3 K/mcL (1.6-8.9); Nucleated Red Blood Cells 0.9 /100 WBC (0); Red Blood Count 3.95 M/mcL (3.82-4.97); Segmented Neutrophils % 77.8 %; White Blood Count 6.8 K/mcL (4.3-11.1)
[2021-11-12 10:51] LABS: Albumin 3.6 g/dL (3.5-5.7); Albumin/Globulin Ratio 1.4 (1.1-2.2); Bilirubin,Total 0.6 mg/dL (0.3-1.0); Calcium 8.8 mg/dL (8.6-10.3); Globulin 2.6 g/dL (2.4-3.5); Magnesium 1.9 mg/dL (1.6-2.6); Phosphorous 2.7 mg/dL (2.7-4.5); Potassium 4.4 mEq/L (3.5-5.1); Total Protein 6.2 g/dL (6.4-8.9)
[2021-11-12] MEDS: *HR* OxyCODONE/APAP 5/325 TABLET PO PRN ×2 (10:54→17:56)
[2021-11-12 11:44] LABS: Mean Platelet Volume 11.9 fL (9.4-12.4)
[2021-11-12] MEDS: *HR* Rivaroxaban 10 MG TABLET PO SCH (17:00)
[2021-11-12] MEDS: Acetaminophen 325 MG TABLET PO PRN (20:56)
[2021-11-13] MEDS: *HR* OxyCODONE/APAP 5/325 TABLET PO PRN ×4 (00:15→21:37)
[2021-11-13] MEDS: Albumin 25% 25gram/100mL 25 GM/100 ML IV.SOLN IVPB SCH ×3 (00:16→18:00)
[2021-11-13] MEDS ORDERED: *HR* OxyCODONE/APAP 7.5/325 TABLET PO ONE (00:33)
[2021-11-13] MEDS ORDERED: *HR* LORazepam 2 MG/ML VIAL IVP ONE (00:34)
[2021-11-13 04:41] LABS: Basophils % 0.3 %; Hemoglobin 9.9 g/dL (11.5-15.4); Immature Granulocytes % 0.3 % (0-4)
[2021-11-13 04:43] LABS: Eosinophils # 0.2 K/mcL (0.0-0.6); Eosinophils % 3.2 %; Hematocrit 34.2 % (35.3-44.9); Immature Platelets 6.6 % (1.1-6.1); Lymphocytes # 0.9 K/mcL (0.6-4.6); Lymphocytes % 14.1 %; Mean Corpuscular HGB Conc 28.9 g/dL (31.6-35.5); Mean Corpuscular Hemoglobin 26.3 pg (28.0-33.3); Mean Corpuscular Volume 90.7 fL (83.0-100.0); Monocytes # 0.8 K/mcL (0.0-1.3); Monocytes % 12.6 %; Neutrophils # 4.5 K/mcL (1.6-8.9); Nucleated Red Blood Cells 0.6 /100 WBC (0); Platelet Count 110 K/mcL (140-400); Red Blood Count 3.77 M/mcL (3.82-4.97); Red Cell Distribution Width 17.7 % (11.5-14.5); Segmented Neutrophils % 69.5 %; White Blood Count 6.5 K/mcL (4.3-11.1)
[2021-11-13 04:59] LABS: Alanine Aminotransferase 10 Units/L (7-52); Albumin 3.7 g/dL (3.5-5.7); Albumin/Globulin Ratio 1.5 (1.1-2.2); Alkaline Phosphatase 85 Units/L (34-104); Aspartate Amino Transferase 12 Units/L (13-39); BUN/Creatinine Ratio 39 (6-26); Bilirubin,Total 0.6 mg/dL (0.3-1.0); Blood Urea Nitrogen 33 mg/dL (8-23); Carbon Dioxide 30 mEq/L (23-29); Chloride 104 mEq/L (98-107); Globulin 2.4 g/dL (2.4-3.5); Glucose 135 mg/dL (70-105); Osmolality,Calculated 299 (280-300); Potassium 3.8 mEq/L (3.5-5.1); Sodium 140 mEq/L (136-145); Total Protein 6.1 g/dL (6.4-8.9); eGFR For African Americans > 60 (> 60); eGFR For Non-African Americans > 60 (> 60)
[2021-11-13] MEDS: Doxycycline 100 MG in 0.9 % Sodium Chloride Mini Bag 100 ML IVPB SCH ×2 (06:23→19:30)
[2021-11-13] MEDS: allopurinoL 300 MG TABLET PO SCH (09:13)
[2021-11-13] MEDS: Furosemide 40 MG/4 ML VIAL IVP SCH (09:13)
[2021-11-13] MEDS: amLODIPine 5 MG TABLET PO SCH (12:37)
[2021-11-13] MEDS: *HR* Rivaroxaban 10 MG TABLET PO SCH (17:59)
[2021-11-13] MEDS: *HR* LORazepam 0.5 MG TABLET PO PRN (20:34)
[2021-11-13] MEDS: Pregabalin 75 MG CAPSULE PO SCH (20:34)
[2021-11-14] MEDS: haloperidoL 1 MG TABLET PO PRN ×2 (00:01→22:47)
[2021-11-14] MEDS: *HR* LORazepam 0.5 MG TABLET PO PRN ×3 (01:29→22:47)
[2021-11-14 05:13] LABS: Hemoglobin 10.2 g/dL (11.5-15.4); Immature Granulocytes % 0.1 % (0-4); Mean Corpuscular Hemoglobin 26.2 pg (28.0-33.3); Nucleated Red Blood Cells 0.3 /100 WBC (0)
[2021-11-14 05:15] LABS: Basophils % 0.4 %; Eosinophils # 0.2 K/mcL (0.0-0.6); Eosinophils % 3.3 %; Hematocrit 35.1 % (35.3-44.9); Immature Platelets 8.5 % (1.1-6.1); Lymphocytes # 0.7 K/mcL (0.6-4.6); Lymphocytes % 9.5 %; Mean Corpuscular HGB Conc 29.1 g/dL (31.6-35.5); Mean Corpuscular Volume 90.2 fL (83.0-100.0); Monocytes # 0.8 K/mcL (0.0-1.3); Monocytes % 11.7 %; Neutrophils # 5.3 K/mcL (1.6-8.9); Platelet Count 100 K/mcL (140-400); Red Blood Count 3.89 M/mcL (3.82-4.97); Red Cell Distribution Width 17.7 % (11.5-14.5); White Blood Count 7.1 K/mcL (4.3-11.1)
[2021-11-14] MEDS: Doxycycline 100 MG in 0.9 % Sodium Chloride Mini Bag 100 ML IVPB SCH (05:39)
[2021-11-14] MEDS: *HR* OxyCODONE/APAP 5/325 TABLET PO PRN ×3 (05:39→19:45)
[2021-11-14 06:12] LABS: Alanine Aminotransferase 10 Units/L (7-52); Albumin 3.9 g/dL (3.5-5.7); Albumin/Globulin Ratio 1.6 (1.1-2.2); Alkaline Phosphatase 81 Units/L (34-104); Aspartate Amino Transferase 12 Units/L (13-39); BUN/Creatinine Ratio 31 (6-26); Bilirubin,Total 0.8 mg/dL (0.3-1.0); Blood Urea Nitrogen 22 mg/dL (8-23); Calcium 9.3 mg/dL (8.6-10.3); Carbon Dioxide 34 mEq/L (23-29); Chloride 102 mEq/L (98-107); Globulin 2.4 g/dL (2.4-3.5); Glucose 105 mg/dL (70-105); Osmolality,Calculated 294 (280-300); Potassium 3.9 mEq/L (3.5-5.1); Sodium 140 mEq/L (136-145); Total Protein 6.3 g/dL (6.4-8.9); eGFR For African Americans > 60 (> 60); eGFR For Non-African Americans > 60 (> 60)
[2021-11-14] MEDS: Pregabalin 75 MG CAPSULE PO SCH ×3 (09:44→19:45)
[2021-11-14] MEDS: allopurinoL 300 MG TABLET PO SCH (09:44)
[2021-11-14] MEDS: amLODIPine 5 MG TABLET PO SCH (09:44)
[2021-11-14] MEDS: Furosemide 40 MG/4 ML VIAL IVP SCH (09:44)
[2021-11-14] MEDS: *HR* Rivaroxaban 10 MG TABLET PO SCH (16:02)
[2021-11-14] MEDS: cefTRIAXone 1,000 MG in 0.9 % Sodium Chloride Mini Bag 100 ML IVPB SCH (16:57)
[2021-11-14] MEDS: Doxycycline 100 MG CAPSULE PO SCH (19:45)
[2021-11-15] MEDS: *HR* OxyCODONE/APAP 5/325 TABLET PO PRN ×3 (02:24→22:16)
[2021-11-15 03:46] LABS: Mean Corpuscular Volume 91.9 fL (83.0-100.0)
[2021-11-15 03:48] LABS: Hematocrit 36.2 % (35.3-44.9); Hemoglobin 10.3 g/dL (11.5-15.4); Immature Platelets 11.4 % (1.1-6.1); Mean Corpuscular HGB Conc 28.5 g/dL (31.6-35.5); Mean Corpuscular Hemoglobin 26.1 pg (28.0-33.3); Red Blood Count 3.94 M/mcL (3.82-4.97); Red Cell Distribution Width 17.6 % (11.5-14.5); White Blood Count 6.5 K/mcL (4.3-11.1)
[2021-11-15 04:02] LABS: Platelet Count 93 K/mcL (140-400)
[2021-11-15 04:07] LABS: BUN/Creatinine Ratio 28 (6-26); Blood Urea Nitrogen 22 mg/dL (8-23); Carbon Dioxide 35 mEq/L (23-29); Chloride 102 mEq/L (98-107); Glucose 96 mg/dL (70-105); Magnesium 1.5 mg/dL (1.6-2.6); Osmolality,Calculated 295 (280-300); Potassium 3.9 mEq/L (3.5-5.1); Sodium 141 mEq/L (136-145); eGFR For African Americans > 60 (> 60); eGFR For Non-African Americans > 60 (> 60)
[2021-11-15] MEDS: cefTRIAXone 1,000 MG in 0.9 % Sodium Chloride Mini Bag 100 ML IVPB SCH (09:41)
[2021-11-15] MEDS: amLODIPine 5 MG TABLET PO SCH (09:42)
[2021-11-15] MEDS: Furosemide 40 MG/4 ML VIAL IVP SCH (09:42)
[2021-11-15] MEDS: allopurinoL 300 MG TABLET PO SCH (09:42)
[2021-11-15] MEDS: Pregabalin 75 MG CAPSULE PO SCH ×3 (09:43→22:13)
[2021-11-15] MEDS: Doxycycline 100 MG CAPSULE PO SCH ×2 (09:43→22:13)
[2021-11-15] MEDS: *HR* Rivaroxaban 10 MG TABLET PO SCH (17:27)
[2021-11-15] MEDS: *HR* LORazepam 0.5 MG TABLET PO PRN (20:14)
[2021-11-16] MEDS: *HR* LORazepam 0.5 MG TABLET PO PRN ×2 (02:56→21:55)
[2021-11-16] MEDS: *HR* OxyCODONE/APAP 5/325 TABLET PO PRN ×4 (04:42→23:43)
[2021-11-16] MEDS: Doxycycline 100 MG CAPSULE PO SCH (08:38)
[2021-11-16] MEDS: cefTRIAXone 1,000 MG in 0.9 % Sodium Chloride Mini Bag 100 ML IVPB SCH (08:38)
[2021-11-16] MEDS: allopurinoL 300 MG TABLET PO SCH (08:38)
[2021-11-16] MEDS: Furosemide 40 MG/4 ML VIAL IVP SCH (08:38)
[2021-11-16] MEDS: amLODIPine 5 MG TABLET PO SCH (08:38)
[2021-11-16] MEDS: Pregabalin 75 MG CAPSULE PO SCH ×3 (08:38→21:55)
[2021-11-16 08:55] LABS: Mean Corpuscular HGB Conc 29.2 g/dL (31.6-35.5); Mean Corpuscular Hemoglobin 26.4 pg (28.0-33.3); Red Cell Distribution Width 17.9 % (11.5-14.5)
[2021-11-16 08:57] LABS: Hematocrit 35.6 % (35.3-44.9); Hemoglobin 10.4 g/dL (11.5-15.4); Mean Corpuscular Volume 90.4 fL (83.0-100.0); Red Blood Count 3.94 M/mcL (3.82-4.97); White Blood Count 7.4 K/mcL (4.3-11.1)
[2021-11-16 09:17] LABS: BUN/Creatinine Ratio 36 (6-26); Blood Urea Nitrogen 26 mg/dL (8-23); Calcium 9.3 mg/dL (8.6-10.3); Carbon Dioxide 38 mEq/L (23-29); Chloride 98 mEq/L (98-107); Glucose 105 mg/dL (70-105); Osmolality,Calculated 293 (280-300); Sodium 139 mEq/L (136-145); eGFR For African Americans > 60 (> 60); eGFR For Non-African Americans > 60 (> 60)
[2021-11-16] MEDS ORDERED: Saline Nasal Spray 44 ML BOTTLE NS PRN (13:36)
[2021-11-16] MEDS: *HR* Rivaroxaban 10 MG TABLET PO SCH (16:19)
[2021-11-16] MEDS: Acetaminophen 325 MG TABLET PO PRN (21:55)
[2021-11-17] MEDS: *HR* LORazepam 0.5 MG TABLET PO PRN (03:19)
[2021-11-17] MEDS: *HR* OxyCODONE/APAP 5/325 TABLET PO PRN ×3 (08:30→20:33)
[2021-11-17] MEDS: allopurinoL 300 MG TABLET PO SCH (08:30)
[2021-11-17] MEDS: Furosemide 40 MG TABLET PO SCH (08:31)
[2021-11-17] MEDS: amLODIPine 5 MG TABLET PO SCH (08:31)
[2021-11-17] MEDS: Pregabalin 75 MG CAPSULE PO SCH ×3 (08:31→20:33)
[2021-11-17] MEDS: *HR* Rivaroxaban 10 MG TABLET PO SCH (16:53)
[2021-11-17] MEDS: traZODone 50 MG TABLET PO PRN (20:33)
[2021-11-18] MEDS: *HR* OxyCODONE/APAP 5/325 TABLET PO PRN ×3 (02:55→22:21)
[2021-11-18] MEDS: Pregabalin 75 MG CAPSULE PO SCH ×3 (09:32→20:34)
[2021-11-18] MEDS: allopurinoL 300 MG TABLET PO SCH (09:33)
[2021-11-18] MEDS: Furosemide 40 MG TABLET PO SCH (09:33)
[2021-11-18] MEDS: amLODIPine 5 MG TABLET PO SCH (09:33)
[2021-11-18] MEDS: *HR* Rivaroxaban 10 MG TABLET PO SCH (15:57)
[2021-11-18] MEDS: *HR* LORazepam 0.5 MG TABLET PO PRN (23:57)
[2021-11-19] MEDS: traZODone 50 MG TABLET PO PRN ×2 (01:03→19:47)
[2021-11-19 04:59] LABS: Hematocrit 33.6 % (35.3-44.9); Hemoglobin 9.6 g/dL (11.5-15.4); Immature Platelets 10.9 % (1.1-6.1); Mean Corpuscular HGB Conc 28.6 g/dL (31.6-35.5); Mean Corpuscular Hemoglobin 25.9 pg (28.0-33.3); Mean Corpuscular Volume 90.8 fL (83.0-100.0); Platelet Count 126 K/mcL (140-400); Red Cell Distribution Width 18.2 % (11.5-14.5); White Blood Count 7.3 K/mcL (4.3-11.1)
[2021-11-19 05:30] LABS: Alanine Aminotransferase 10 Units/L (7-52); Albumin 3.2 g/dL (3.5-5.7); Albumin/Globulin Ratio 1.2 (1.1-2.2); Alkaline Phosphatase 81 Units/L (34-104); Aspartate Amino Transferase 13 Units/L (13-39); BUN/Creatinine Ratio 36 (6-26); Bilirubin,Total 0.5 mg/dL (0.3-1.0); Blood Urea Nitrogen 28 mg/dL (8-23); Calcium 8.8 mg/dL (8.6-10.3); Carbon Dioxide 37 mEq/L (23-29); Chloride 98 mEq/L (98-107); Globulin 2.7 g/dL (2.4-3.5); Glucose 93 mg/dL (70-105); Magnesium 1.8 mg/dL (1.6-2.6); Osmolality,Calculated 289 (280-300); Potassium 4.3 mEq/L (3.5-5.1); Sodium 137 mEq/L (136-145); Total Protein 5.9 g/dL (6.4-8.9); eGFR For African Americans > 60 (> 60); eGFR For Non-African Americans > 60 (> 60)
[2021-11-19] MEDS: *HR* OxyCODONE/APAP 5/325 TABLET PO PRN ×3 (08:29→19:48)
[2021-11-19] MEDS: Pregabalin 75 MG CAPSULE PO SCH ×3 (08:29→19:48)
[2021-11-19] MEDS: allopurinoL 300 MG TABLET PO SCH (08:29)
[2021-11-19] MEDS: Furosemide 40 MG TABLET PO SCH (08:29)
[2021-11-19] MEDS: amLODIPine 5 MG TABLET PO SCH (08:29)
[2021-11-19] MEDS: *HR* Rivaroxaban 10 MG TABLET PO SCH (17:48)
[2021-11-20] MEDS: *HR* OxyCODONE/APAP 5/325 TABLET PO PRN ×2 (03:07→11:22)
[2021-11-20] MEDS: *HR* LORazepam 0.5 MG TABLET PO PRN ×2 (03:07→11:22)
[2021-11-20 06:38] VITALS: BP 100/62; PULSE 86; TEMP 98
[2021-11-20] MEDS: amLODIPine 5 MG TABLET PO SCH (08:29)
[2021-11-20] MEDS: Pregabalin 75 MG CAPSULE PO SCH (08:29)
[2021-11-20] MEDS: Furosemide 40 MG TABLET PO SCH (08:29)
[2021-11-20] MEDS: allopurinoL 300 MG TABLET PO SCH (08:29)
[2021-11-20 09:36] LABS: Influenza A PCR Negative (Negative); Influenza B PCR Negative (Negative); Resp. Syncytial Virus PCR Negative (Negative)
[2021-11-20 09:45] LABS: SARS-CoV-2 by PCR (In House) Negative (Negative)
[2021-11-20 12:46] VITALS: O2SAT 92
== END 2021-11-20 13:28 | disposition other institution (70) | DRG 917 ==
LOC: 3NENU 13:08 → EMEROOARM 13:08 → 3NENU 18:57 → 2NNU 11-11 06:24 → SUATTDRO 11-11 10:33 → 2NENU 11-13 13:52
PROVIDERS: ADMIT Hospitalist; ATTEND Internal Medicine